=== PATIENT | male | born 1935 | race Caucasian/White ===

== ENCOUNTER 2024-10-22 01:26 | Inpatient (IN) | payer OTHER, SELFPAY ==
[2024-10-21 21:02] VITALS: BP 99/72
[2024-10-21 21:29] LABS: Hematocrit 25.1 % (39.0-52.0); Hemoglobin 8.3 g/dL (13.0-18.0); Mean Corp Hgb Conc. 33.1 g/dL (33.0-37.0); Mean Corpuscular Hgb 25.9 pg (27.0-31.0); Mean Corpuscular Volume 78.4 fL (80.0-94.0); Mean Platelet Volume 9.8 fL (7.4-10.4); Platelet Count 225 10^3/uL (130-400); Red Cell Dist. Width 15.8 % (11.5-14.5); White Blood Cell Count 40.1 10^3/uL (4.8-10.8)
[2024-10-21 22:00] LABS: % Basophils 0.2 % (0-2); % Immature Granulocytes 1.6 % (0-0.5); % Lymphocytes 3.6 % (20.5-51.1); % Monocytes 3.8 % (1.7-9.3); % Neutrophils 90.8 % (42.2-75.2); ALT (SGPT) 23 U/L (0-50); AST (SGOT) 13 U/L (17-59); Absolute Basophils 0.1 10^3/uL (0-0.2); Absolute Immature Granulocytes 0.7 10^3/uL (0-0.05); Absolute Lymphocytes 1.5 10^3/uL (1.2-3.4); Absolute Monocytes 1.5 10^3/uL (0.1-0.6); Absolute Neutrophils 36.4 10^3/uL (1.4-6.5); Albumin 3.5 g/dl (3.5-5.0); Alkaline Phosphatase 142 U/L (38-126); Blood Urea Nitrogen 161 mg/dl (9-20); Calcium 8.4 mg/dl (8.4-10.2); Carbon Dioxide 12 mmol/L (22-30); Chloride 97 mmol/L (98-107); Glucose 137 mg/dl (70-99); Nucleated Red Blood Cells % 0 % (-); Potassium 5.4 mmol/L (3.5-5.1); Sodium 133 mmol/L (135-145); Total Bilirubin 0.5 mg/dl (0.2-1.3); Total Protein 6.5 g/dl (6.3-8.2); eGFR 4.59
[2024-10-21 22:31] VITALS: BP 107/53
--- NOTE | 2024-10-21 22:40 | ED.GENMED ---
History of Present Illness
General
Chief Complaint: Change in Mental Status
Source: patient and family (Granddaughter)
Time Seen by Provider: 10/21/24 22:20
History of Present Illness
History of Present Illness:
89-year-old gentleman brought to the emergency room by his granddaughter for evaluation of confusion, incontinence which is new onset, weight loss and some shortness of breath. Patient lives independently. He does go to doctors appointments but
has not been hospitalized in approximately 40 years. He evidently recently had some GI bleeding thought to be related to the initiation of Xarelto. Unclear what the indication for Xarelto was but it has been discontinued. Patient has a solitary
kidney. Patient unsure which kidney was removed but it was removed approximately 50 years ago 'because it went bad'. Unclear if the patient has a history of prostatic hypertrophy. Patient is unable to quantify his urine output at this time.
Phy Exam
Physical Exam
Physical Exam:
General: Awake, Alert, Oriented X3. Chronic ill-appearing, cachectic
Vitals: Tachypneic
Head: Atraumatic
Eyes: Pupils equal, EOMI
Throat: Airway intact, no exudates, dry mucosa
Neck: Trachea midline
Lungs: Crackles bilaterally
Heart: Regular rate, no murmurs
Abd: Soft, Nontender, No pulsatile mass
Neuro: Nonfocal
Skin: Warm, dry, no rash
Extremities: pulses equal b/l, 2+ edema
Sepsis
Sepsis Screening
Sepsis Assessment: Sepsis
Sepsis Screen
Sepsis Screen: Sepsis
Date: 10/22/24
Time: 06:06
Course
Orders/Labs/Results
Orders:
Orders
10/21/24 21:15
Complete Blood Count/With Diff Urgent
Comprehensive Metabolic Panel Urgent
Magnesium Urgent
Comment: ADD ON
Phosphorus Urgent
Comment: ADD ON
Urine Culture Urgent
KENN Source: U
Specimen Description:
Date Specimen was Collected: 10/21/24
Time Specimen was Collected: 21:07
10/21/24 22:33
Electrocardiogram (*1) Urgent
Reason for Study: Fatigue / Weakness
EKG- Treatment ONCE
10/21/24 22:34
CT Abd/pel Without Iv Or Oral Urgent
Comment:
Reason For Exam: acute renal failure
10/21/24 22:38
Calcium Gluconate 1,000 mg IV NOW STA
Dextrose 50%-Water [Dextrose 50% Syringe] 12.5 grams IV [id number] PRN
Dextrose 50%-Water [Dextrose 50% Syringe] 25 grams IV NOW STA
Insulin Human Regular [Novolin R] 5 units IV NOW STA
CR Chest - 2 Views Urgent
Comment:
Reason For Exam: sob
10/21/24 22:40
Bedside Glucose PRE IV Insulin- HyperK+ NOW
10/21/24 22:45
Sterile Water For Inj [Sterile Water For Injection 1000 ml] 1,000 ml Sodium Bicarbonate 150 meq IV 200 mls/hr
10/21/24 22:47
Urinalysis Urgent
Date Specimen was Collected: 10/21/24
Time Specimen was Collected: 21:07
Urine Microscopic Urgent
Date Specimen was Collected: 10/21/24
Time Specimen was Collected: 21:07
10/21/24 23:19
CefTRIAXone [Rocephin] 1,000 mg IV NOW STA
10/21/24 23:20
Simmons [Simmons Placement- Treatment] ONCE
Reason for insertion: Acute Retention
10/21/24 23:29
Sterile Water [Sterile Water For Injection] 10 ml .ROUTE .STK-MED ONE
10/22/24 00:10
Bedside Glucose POST IV Insulin- HyperK+ Q1HX2,Q2HX2
10/22/24 01:02
Admit/Transfer Patient As Directed
Co-Sign Provider:
Level of Care: Inpatient admission
Assign to:: Telemetry
Physician / Group: hospitalist
Diagnosis: acute kidney failure
Reason for Telemetry: Arrhythmia
Date to Stop Telemetry: 10/25/24
Time to Stop Telemetry: 11:00
Reason for Hospitalization: acute kidney failure
Expected length of stay greater than two midnights?: Yes
ELOS- Estimated Length of Stay in days: 2
I certify the patient meets the requirements for IP care: Yes
10/22/24 01:03
PRN Pain Medication Management As Directed
May give lesser potent ordered pain med per pt: Yes
preference::
Protocol:: Medication orders for pain may be administered in a
manner that supports deferring to patient preference
when the pt is:
- Requesting an ordered lesser potent pain medication.
Least to most potent pain medications are defined
as: acetaminophen < NSAID < tramadol < opioids
(morphine, oxycodone, hydromorphone).
- Requesting a lesser dose of the same medication IF
ORDERED.
- Requesting a less intrusive route of administration
if both routes are prescribed by the provider (PO <
IV).
10/22/24 01:04
Code Status As Directed
Resuscitation Status: Full Code
10/22/24 01:25
Potassium Urgent
Comment: draw 2 hours after regular insulin IV administration
10/22/24 02:32
Acetaminophen [Tylenol] 650 mg PO Q4HPRN PRN
Bisacodyl [Dulcolax] 10 mg RECTAL [id number] PRN
Docusate W/Senna [Senokot-S] 1 tablet PO BIDPRN PRN
Ondansetron Injectable [Zofran] 4 mg IV Q6HPRN PRN
Polyethylene Glycol Powder [Miralax] 17 grams PO DAILYPRN PRN
10/22/24 02:32
NEPHROLOGY CONSULT Routine
Consulting Provider: Luis Angel Larkin
Was physician already notified: Yes
Reason for consult: lissy, bladder outlet obstruction
UROLOGY CONSULT Routine
Consulting Provider: Robert Tabor
Was physician already notified: Yes
Comment: bladder outlet obstruction, prostate mass, renal failure
Urine Creatinine Routine
Date Specimen was Collected: 10/22/24
Time Specimen was Collected: 04:05
Urine Protein/Creat Ratio (Random) [Protein/Creat Ratio (Random)] Routine
Date Specimen was Collected: 10/22/24
Time Specimen was Collected: 04:05
Urine Sodium Routine
Date Specimen was Collected: 10/22/24
Time Specimen was Collected: 04:05
MRI Abdomen [MR Abdomen Without Contrast] Routine
Comment:
Reason For Exam: liver mass evaluation
Recent pill cam endoscopy?: No
Activity As Directed
Activity Level: With Assistance
Simmons Catheter [Catheter- Indwelling] As Directed
Reason for insertion: Outlet Obstruction
Intake/ Output As Directed
Frequency: Per unit guidelines
Vital Signs As Directed
Frequency: Per unit guidelines
Weight As Directed
Frequency: Daily
Pulse Ox/spot Check [RESP] Routine
Quantity: 1
DX Deep Vein Thrombosis Video Routine
10/22/24 Breakfast
Potassium, 2 Gram
At Your Request: Limited Participation
AFP Male/Tumor Marker IN AM
Basic Metabolic Panel IN AM
CEA IN AM
Cardiovascular Evaluation IN AM
Complete Blood Count/No Diff IN AM
Magnesium IN AM
PSA, Total - Screen IN AM
PTH [Intact PTH Includes Calcium] IN AM
Protein Electrophoresis Reflex [S] IN AM
TSH IN AM
10/22/24 08:00
Heparin 5,000 units SC Q12
10/22/24 22:00
Aspirin Chewable [Low Strength Aspirin] 81 mg PO HS
Terazosin [Hytrin] 2 mg PO HS
10/23/24 00:00
CefTRIAXone [Rocephin] 1,000 mg IV Q24H
10/25/24 11:00
DC Protocol for Telemetry ONCE
Abnormal Lab Results
10/21/24 10/21/24 10/21/24
21:15 22:47 23:56
WBC 40.1 H* 10^3/uL
(4.8-10.8)
RBC 3.20 L 10^6/uL
(4.70-6.10)
Hgb 8.3 L g/dL
(13.0-18.0)
Hct 25.1 L %
(39.0-52.0)
MCV 78.4 L fL
(80.0-94.0)
MCH 25.9 L pg
(27.0-31.0)
RDW 15.8 H %
(11.5-14.5)
Abs Immat Gran (auto) 0.7 H 10^3/uL
(0-0.05)
Absolute Neuts (auto) 36.4 H 10^3/uL
(1.4-6.5)
Absolute Monos (auto) 1.5 H 10^3/uL
(0.1-0.6)
Immature Gran % 1.6 H %
(0-0.5)
Neutrophils % 90.8 H %
(42.2-75.2)
Lymphocytes % 3.6 L %
(20.5-51.1)
Sodium 133 L mmol/L
(135-145)
Potassium 5.4 H mmol/L
(3.5-5.1)
Chloride 97 L mmol/L
(98-107)
Carbon Dioxide 12 L* mmol/L
(22-30)
BUN 161 H* mg/dl
(9-20)
Creatinine 9.9 H* mg/dL
(0.7-1.3)
Glucose 137 H mg/dl
(70-99)
Phosphorus 7.9 H mg/dl
(2.5-4.5)
Magnesium 2.8 H mg/dl
(1.6-2.3)
AST 13 L U/L
(17-59)
Alkaline Phosphatase 142 H U/L
(38-126)
Urine Occult Blood 3+ A
(Negative)
Ur Leukocyte Esterase 2+ A
(Negative)
Urine WBC >100 A /HPF
(0-5)
Urine Albumin 1+ A
(Neg - Trace)
POC Glucose 151 H mg/dl
(70-99)
10/21/24 21:15
10/22/24 01:25
Vital Signs
Initial and Last Documented VS:
Initial Vital Signs
Pulse Resp BP Pulse Ox
66 26 99/72 100
10/21/24 21:02 10/21/24 21:02 10/21/24 21:02 10/21/24 21:02
Last Documented Vital Signs
Temp Pulse Resp BP Pulse Ox
97.5 F 81 16 127/51 98
10/22/24 02:59 10/22/24 02:59 10/22/24 02:59 10/22/24 02:59 10/22/24 02:59
MDM/Problems Addressed
Differential Diagnosis Includes:
Acute renal failure, electrolyte abnormality, symptomatic anemia, viral or bacterial infection
MDM/Problems Addressed:
Patient presents with confusion and weakness that has been progressing over the past several days. Patient lives independently so this is a significant change from baseline. Physical exam reveals fullness in the suprapubic region concerning for
distended bladder. Simmons catheter placed with the return of over a liter of urine. Urine appears infected. Labs show markedly elevated white blood cell count with a hemoglobin of 8.3 and a left shift. Chemistry show acute renal failure with a BUN
of 161 and a creatinine of 9.9. He has moderate hyperkalemia. Calcium gluconate, insulin and dextrose administered given the hyperkalemia as the patient does have peaked T waves on the EKG. Also he has noted to have a first-degree AV block.
Chemistries also show a anion gap metabolic acidosis. His bicarb is 12. Bicarbonate infusion initiated. Case discussed with Dr. Larkin who is on-call for nephrology. He agrees with the plan. Given we have alleviated the bladder outlet obstruction
he is optimistic the patient's function will improve.
*Radiology
Radiology exam reviewed: radiology read reviewed
*Pulse Oximetry
Patient hypoxic: no
*EKG
Interpreted by ED Provider?: Yes
Heart Rate: 74
Rate: normal
Rhythm: a-fib
[place]: normal axis
Interval: normal QT interval
QRS Pattern: normal QRS
Ischemia: other (peaked t waves)
*Nuclear Medicine Technologist Interpretation
Rate: normal
Interpretation: abnormal
Rhythm: a-fib
*Critical Care Note
Total Time (30-74mins, 75-104mins- exclusive of procedures): 40 min
comment:
Critical care statement: A total of 40 minutes of critical care time was provided for this patient. This includes management of unstable vital signs, evaluation of the patient at bedside, reviewing the patient's pertinent medical records, discussion
with consultants, review of old EKGs and review of pertinent medical records. This time with separate from time utilized to perform the aforementioned documented procedures
ED Attending Note
-
Portions of this chart may have been created with voice recognition software.� Occasional wrong word or��sound alike� substitutions may have occurred due to the inherent limitations of voice recognition software.
Discharge Plan
Departure
Patient Disposition: Admit
Date of Disposition: 10/21/24
Time of Disposition: 23:59
Admit to: IMU
Presentation/result/management discussed w/ accepting MD/DO: Hospitalist
Condition: Serious
Discharge Problem:
Acute renal failure (ARF), Acute hyperkalemia, Bladder outlet obstruction, Acute UTI
Interventions
Interventions:
*Risk Screen - Suicide Last Done: 10/21/24 21:02
*Neglect/Abuse Screening Last Done: 10/21/24 21:02
*ED COVID-19 Vaccine History Last Done: 10/22/24 02:33
*Nursing Disposition Last Done: 10/22/24 02:14
ED- Cardiac Assessment Last Done: 10/21/24 23:21
ED-Male Genitourinary Assessment Last Done: 10/21/24 23:21
ED- Neurological Assessment Last Done: 10/21/24 23:21
Discharge Date and Time
Discharge Date/Time: 10/22/24 02:15
[2024-10-21 22:43] VITALS: BMI 23.0
[2024-10-21 22:57] LABS: Urine Albumin 1+ (Neg - Trace); Urine Bilirubin Negative (Negative); Urine Character Slightly Cloudy (Clear); Urine Color Yellow; Urine Glucose Negative (Negative); Urine Ketone Negative (Negative); Urine Leukocyte 2+ (Negative); Urine Nitrite Negative (Negative); Urine Occult Blood 3+ (Negative); Urine Specific Gravity 1.015 (<1.030); Urine Urobilinogen Negative (Neg - 1+)
[2024-10-21 23:00] VITALS: BP 121/52
[2024-10-21] MEDS: DEXTROSE 50% SYRINGE 25 GRAMS IV (23:01)
[2024-10-21] MEDS: NOVOLIN R 5 UNITS IV (23:02)
[2024-10-21] MEDS: CALCIUM GLUCONATE 1000 MG IV (23:06)
[2024-10-21 23:13] LABS: Magnesium 2.8 mg/dl (1.6-2.3); Phosphorus 7.9 mg/dl (2.5-4.5)
[2024-10-21 23:16] LABS: Urine White Cell >100 /HPF (0-5)
[2024-10-21] MEDS: ROCEPHIN 1000 MG IV (23:44)
[2024-10-21] MEDS: SODIUM BICARBONATE 1150 MEQ IV (23:56)
[2024-10-21 23:57] LABS: Glucose - Point of Care 151 mg/dl (70-99)
[2024-10-22] VITALS (10 sets, daily range): BP systolic 102–134; BP diastolic 44–67; BMI 22.6
--- NOTE | 2024-10-22 00:46 | HPS.HSE ---
Family Physician
-
Family Physician: Lokesh Arrington
Chief Complaint
-
Weakness and lethargy
History of Present Illness
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
According to the granddaughter the patient declined significantly over the last 3 weeks. He has had decreased appetite, decreased p.o. intake and significant weight loss of about 20 to 30 pounds. Patient tells me and his granddaughter at home
because that is had nocturia about 8 times per night. He himself reports he has some difficulty with urination. He denies a weak stream. He denies dysuria hematuria. He does report some pelvic discomfort. He denies having fevers or chills. He
denies any back pain. He denies any lower extremity weakness. Apparently ED pain seen his principal software engineer who wanted to do a CT scan for concern of malignancy of unknown source or etiology.
Patient is unaware if he has been diagnosed with atrial fibrillation in the past but he was placed on Xarelto recently which was discontinued due to acute GI bleed. Patient was returned back on aspirin. Per patient did not alter was used to
replace the aspirin by his physician. He denies any history of congestive heart failure. He denies any chest pain. He denies shortness of breath other than some dyspnea on exertion and fatigue. He denies any vomiting. He denies have any
diarrhea. Has been no known sick contacts.
In the emergency department he was afebrile, blood pressure was 110/60 with a pulse of 77 was satting 99% on room air. ECG shows atrial fibrillation at a rate of 74. He had a leukocytosis to 14,000 with a white count of 8.39 plate count of 225.
Chemistries notable for a sodium of 133, potassium is pending, bicarb was 12, BUN was 161 and a creatinine of 9.9. Phosphorus was 7.9. Magnesium 2.8. Alk phos was elevated at 142. LFTs were normal.
Patient had a urinary catheter placed. He had about 1.5 L of urine immediately released from the bladder. Turbid urine still coming from catheter.
UA with pyuria, bacteriuria could not be assessed due to the degree of pyuria.
A noncontrast CT of the abdomen and pelvis shows was a single kidney, no significant hydronephrosis, bladder decompressed with Simmons catheter, there was. Prostatomegaly with 2 low-density areas in the right prostate. There was a low-density
ill-defined probable mass in the left hepatic lobe. Scattered lucencies throughout the skeleton indeterminate.
Medical History
Past Medical History
Past Medical History: Reports Arrhythmia, CAD and Other (BPH)
Past Surgical History: Reports Other
Social History
Tobacco: Non-smoker
Alcohol: None
Drug: None
Personal:
Living: Alone
Employment: Retired
Family History
Family History: Not pertinent
Allergies / Home Medications
Allergies reflects when Allergies were last updated in [facility].
Home Medications with original date entered in [facility]
Allergy/Medication List:
Allergies
Allergy/AdvReac Type Severity Reaction Status Date / Time
No Known Allergies Allergy Unverified 10/21/24 22:42
Home Medications
aspirin 81 mg chewable tablet 81 mg PO HS 10/21/24
atorvastatin 20 mg tablet 20 mg PO DAILY 10/21/24
ramipril 5 mg capsule 10 mg PO DAILY 10/21/24
terazosin 2 mg capsule 2 mg PO HS 10/21/24
therapeutic multivitamin 1 tab PO DAILY 10/21/24
Review of Systems
-
Constitutional: Reports Weight Loss and Fatigue
EENT: Reports Other (hoarseness)
Respiratory: Reports No Symptoms
Cardiac: Reports No Symptoms
Abdomen/GI: Reports Nausea
: Reports Difficulty Voiding
Musculoskeletal: Reports No Symptoms
Skin: Reports No Symptoms
Neurological: Reports Weakness
Endocrine: Reports No Symptoms
Hematologic/Lymphatic: Reports No Symptoms
Psych: Reports No Symptoms
Physical Exam
Vital Signs
Vital Signs
Pulse Resp BP Pulse Ox
63 14 110/62 99
10/22/24 00:30 10/22/24 00:30 10/22/24 00:00 10/22/24 00:30
Physical Exam
General: Appears Chronically Ill
HEENT: NormoCephalic, Anicteric, PERRLA, No Ptosis, Nose Appears Normal and Neck Nontender; No Moist mucous membranes, Thrush or Pharyngeal Erythema
Respiratory: Clear
Cardiac: S1/S2 and Irregular Rhythm
Breast: Deferred by me
GI: Soft, Non Tender, Non Distended and Normal Bowel Sounds
Rectal: Deferred by Provider
Genito-urinary: Turbid Urine and Simmons
Musculoskeletal: No Clubbing, No Cyanosis, Edema, Left Lower Extremity (trace ankle) and Edema, Right Lower Extremity (trace ankle)
Neuro: AO x 3 and Nonfocal/grossly intact
Hematologic/Lymphatic: No Lymphadenopathy
Psych: Calm
Laboratory Results
-
10/21/24 21:15
Laboratory Results
Total Bilirubin 0.5 mg/dl (0.2-1.3) 10/21/24 21:15
AST 13 U/L (17-59) L 10/21/24 21:15
ALT 23 U/L (0-50) 10/21/24 21:15
Alkaline Phosphatase 142 U/L (38-126) H 10/21/24 21:15
Data Reviewed
-
CT Scan: Report Reviewed by me
Medical Tests (Nuc Med, Echo, EKG etc): Image Personally Visualized and interpreted
Lab Data: Labs Reviewed by me
Old Records: Reviewed
Impression/Plan
-
IMPRESSION:
89 y.o male here with acute renal failure of likley obstructive etiology. K is 5.4. bicarb 12. BUN 161 and Cr 9.9. Patient not immediately polyuric after placement of catheter but making some urine. Does not appear oliguric. History suggest
some degree of dehydration.
PLAN:
BLANCA - Severe BLANCA plausible post-renal given h/o bph, nocturia and urinary retention to 1.5 L in ED. No hydronephrosis seen on CT. Possibly more recent obstruction on underlying CKD. Recent blood work in september was reported to be normal for him.
Possibly infection but no signs of sepsis.
- admit to telemetry
- s/p insulin dextrose with repeat K pending.
- 150 meq bicarb gtt at 150 ml/hr for now.
- elevated phos and mag suggests some chronicity but will repeat after hydration
- check pth
- strict i/o
- K restricted diet for now
- check urine protein/cr, urine fractional sodium excretion
- hold ramipril/statin
- nephrology consult
Urinary retention
- s/p urinary catheter
- continue catheter for now
- given heterogenous prostate check psa
- continue terrazosin for now
- continue ceftriaxone pending cultures
- urology consult
AFIB - unclear if new onset as patient has h/o anticoaglation and 'skipping heart beat'
- obtain records from pmd
- telemetry monitoring for now
- Xarelto resulted in GI bleed, hold for now
- continue aspirin 81
FTT - hepatic lobe and skeletal lesions concerning for malignancy. Primary unknown
- check psa, cea, afp
- liver mass protocl mri w/o contrast
- check spep
- monitor leukocytosis if persistently elevated, needs peripheral smear
- CT chest (hoarseness), xray was negative.
DVT PPX - heparin sq
Code status - Full code
[2024-10-22 01:18] LABS: Glucose - Point of Care 94 mg/dl (70-99)
--- NOTE | 2024-10-22 02:30 | PTCARENOTE ---
Patient arrived to unit from ED via stretcher. Patient pulled over to bed from stretcher. A&Ox3. Patient oriented to unit with call light within reach. Care ongoing.
[2024-10-22 02:58] LABS: Glucose - Point of Care 93 mg/dl (70-99)
[2024-10-22 04:59] LABS: Glucose - Point of Care 84 mg/dl (70-99)
[2024-10-22] MEDS: SODIUM BICARBONATE 1150 MEQ IV ×3 (06:15→18:20)
[2024-10-22 06:57] LABS: Hematocrit 21.8 % (39.0-52.0); Hemoglobin 7.3 g/dL (13.0-18.0); Mean Corp Hgb Conc. 33.5 g/dL (33.0-37.0); Mean Corpuscular Hgb 25.5 pg (27.0-31.0); Mean Corpuscular Volume 76.2 fL (80.0-94.0); Mean Platelet Volume 9.7 fL (7.4-10.4); Platelet Count 198 10^3/uL (130-400); Red Blood Cell Count 2.86 10^6/uL (4.70-6.10); Red Cell Dist. Width 15.6 % (11.5-14.5); White Blood Cell Count 28.2 10^3/uL (4.8-10.8)
[2024-10-22] MEDS: HEPARIN 5000 UNITS SC ×2 (07:33→19:52)
[2024-10-22 07:38] LABS: Calcium 7.9 mg/dl (8.4-10.2); Carbon Dioxide 17 mmol/L (22-30); Chloride 95 mmol/L (98-107); Estimated Creatinine Clearance 5 ml/min; Glucose 84 mg/dl (70-99); HDL Cholesterol 23 mg/dl; LDL Cholesterol, Calculated 31 mg/dl; Magnesium 2.6 mg/dl (1.6-2.3); Potassium 4.6 mmol/L (3.5-5.1); Sodium 133 mmol/L (135-145); Total Cholesterol 85 mg/dl (50-199); Triglyceride 155 mg/dl (10-149); Very Low Density Lipoprotein 31 mg/dl (0-30); eGFR 4.83
[2024-10-22 07:43] LABS: Blood Urea Nitrogen 161 mg/dl (9-20)
[2024-10-22 07:54] LABS: CEA 4.58 ng/ml; TSH 1.69 uIU/ml (0.47-4.68)
[2024-10-22 08:01] LABS: Urine Sodium 49 mmol/L (30-90)
[2024-10-22 08:10] LABS: Protein/creatinine Ratio 3.4; Urine Protein 335 mg/dl
--- NOTE | 2024-10-22 08:24 | W.CON.NEPH ---
Addendum entered and electronically signed by Luis Angel Larkin MD 10/22/24 15:39:
Spoke with granddaughter Yaz on phone. baseline Cr Aug 2023 1.5.
She can have the dialysis discussion with him if the Cr fails to improve significantly.
Awaiting workup of elevated PSA/prostate abnormalities
Weight loss and failure to thrive could have also at least in part be potentiated by severe azotemia.
Original Note:
Medical History
-
Chief Complaint: Pain
History of Present Illness:
89-year-old gentleman who lives alone but is checked on by his family including a daughter and several grandchildren. He has hypertension on a multidrug regimen which presumably has been stable as well as hyperlipidemia on statin therapy also
stable. He does have a history of left nephrectomy at the age of 37 though he does not recall the details as to why it was removed. In the last 3 to 4 weeks time he has declined. There appears to be a time when he had seen cardiology who became
concerned regarding his significant weight loss of 20 to 30 pounds in that timeframe. He was brought to the ER by his granddaughter who is an ER nurse because he had apparently reported pain and issues with urination. He does not recall this at
this time. In the emergency room he was noted to have a creatinine of 9.9. A Simmons catheter was placed with 1.5 L of urine output. He also has significant acidosis. We are asked to assist with management of the BLANCA. No baseline values are known.
Past Medical History
Left nephrectomy age 37
A-fib
BPH
CAD
Hyperlipidemia
Social History
Tobacco: Non-Smoker
Alcohol: None
Family History
Family History: Not Pertinent
Allergies / Home Medications
Allergy/AdvReac Type Severity Reaction Status Date / Time
No Known Allergies Allergy Unverified 10/21/24 22:42
�Medication �Instructions �Recorded �Confirmed �Type
aspirin 81 mg chewable tablet 81 mg PO HS 10/21/24 10/21/24 History
atorvastatin 20 mg tablet 20 mg PO DAILY 10/21/24 10/21/24 History
ramipril 5 mg capsule 10 mg PO DAILY 10/21/24 10/21/24 History
terazosin 2 mg capsule 2 mg PO HS 10/21/24 10/21/24 History
therapeutic multivitamin 1 tab PO DAILY 10/21/24 10/21/24 History
Review of Systems
-
No chest pain, no shortness of breath. No fever. No issues with bowels. No edema. No rash. He reports normal appetite. He does not recall poor appetite recently.
Physical Exam
Vital Signs
Vital Signs
Temp Pulse Resp BP Pulse Ox
97.8 F 76 16 124/59 99
10/22/24 07:34 10/22/24 07:34 10/22/24 07:34 10/22/24 07:34 10/22/24 07:34
Lab Results
WBC 28.2 10^3/uL (4.8-10.8) H 10/22/24 06:34
RBC 2.86 10^6/uL (4.70-6.10) L 10/22/24 06:34
Hgb 7.3 g/dL (13.0-18.0) L 10/22/24 06:34
Hct 21.8 % (39.0-52.0) L 10/22/24 06:34
Plt Count 198 10^3/uL (130-400) 10/22/24 06:34
Sodium 133 mmol/L (135-145) L 10/22/24 06:34
Potassium 4.6 mmol/L (3.5-5.1) 10/22/24 06:34
Chloride 95 mmol/L (98-107) L 10/22/24 06:34
Carbon Dioxide 17 mmol/L (22-30) L 10/22/24 06:34
BUN 161 mg/dl (9-20) H* 10/22/24 06:34
Creatinine 9.5 mg/dL (0.7-1.3) H* 10/22/24 06:34
eGFR 4.83 10/22/24 06:34
Glucose 84 mg/dl (70-99) 10/22/24 06:34
Calcium 7.9 mg/dl (8.4-10.2) L 10/22/24 06:34
Phosphorus 7.9 mg/dl (2.5-4.5) H 10/21/24 21:15
Albumin 3.5 g/dl (3.5-5.0) 10/21/24 21:15
Laboratory Tests
10/21/24
21:15
WBC 40.1 H*
Potassium 5.4 H
Creatinine 9.9 H*
Phosphorus 7.[address] abdomen pelvis without contrast on 10/21/2024
IMPRESSION:.
Approximate 3.2 cm and 3.7 cm low-attenuation densities in the right side of the enlarged prostate gland. Findings could represent abscess, mass or cyst, cannot be differentiated on this study without intravenous contrast.
Left kidney not visualized. No findings to suggest right-sided obstructive uropathy. Empty urinary bladder containing Simmons catheter.
Colonic diverticulosis.
Few scattered indeterminate osseous lucencies, cannot exclude malignancy.
Physical Exam
Patient is awake alert oriented and in no distress. He was able to identify the year but not the month. He knew that there was a recent presidential and alteration. When asked about football, he says that he recalls a recent game between [place]
[facility] and [place] that was canceled because of snow. Mood and affect were pleasant, insight and judgment were poor. Pupils are equal round and reactive to light, extraocular movements are intact, sclera were anicteric. Hearing was normal, ears and
nose are intact. Oropharynx was clear and dry. Neck was supple with trachea midline and no thyromegaly. Heart was regular rate and rhythm without rubs. Lower extremities without edema. Lungs were clear to auscultation bilaterally and with normal
excursion. Abdomen was soft, nontender, with normal active bowel sounds, and no hepatosplenomegaly. Skin was without rash and with normal turgor.
Data Reviewed
-
Radiology: Image Personally Visualized and interpreted (Chest x-ray on 10/21/2024 by reading shows no acute disease)
Medical Tests (Nuc Med, Echo etc): Image Personally Visualized and interpreted (EKG on 10/21/2024 by my reading shows atrial fibrillation, nonspecific interventricular conduction delay)
Assessment/Plan
-
Assessment
BLANCA
Urinary retention
Azotemia
Metabolic acidosis
Hyperkalemia
hyponatremia
Hypocalcemia
Hyperphosphatemia
Nephrotic range proteinuria
Anemia, microcytic
Leukocytosis
Elevated PSA, prostate abnormality on CT
A-fib
Plan
Maintain Simmons catheter
Off MARIA A inhibitor
Empiric antibiotics per primary team
Urology evaluation
Check iron studies
IV fluids with bicarbonate we will continue
Treat potassium medically
Follow urine output
I discussed with the patient that he may require dialysis though I am not certain he is an ideal long-term candidate
Most likely BLANCA is from urinary retention, but concurrent causes may also need to be checked, so we will add on serology
[2024-10-22 09:31] LABS: Creatine Phosphokinase 48 U/L (55-170)
[2024-10-22 11:20] LABS: Intact PTH 153.3 pg/ml (13.6-85.8)
--- NOTE | 2024-10-22 11:46 | W.PN.HOSP.TC ---
Today's Communication/Plan
-
.
Assessment / Plan
Assessment / Plan
Physical Exam
General: Appears Chronically Ill
HEENT: Normocephalic, Anicteric, PERRLA, No Ptosis, Nose Appears Normal and Neck Nontender; No Moist mucous membranes, Thrush or Pharyngeal Erythema
Respiratory: Clear
Cardiac: S1/S2 and Irregular Rhythm
Breast: Deferred by me
GI: Soft, Non Tender, Non Distended and Normal Bowel Sounds
Rectal: No bleeding
Genito-urinary: Turbid Urine and Simmons
Musculoskeletal: No Clubbing, No Cyanosis, Edema, Left Lower Extremity (trace ankle) and Edema, Right Lower Extremity (trace ankle)
Neuro: AO to self and surroundings, he followed simple commands, forgetful.
Psych: Calm
89 y.o male here with acute renal failure of likley obstructive etiology. K is 5.4. bicarb 12. BUN 161 and Cr 9.9. Patient not immediately polyuric after placement of catheter but making some urine. Does not appear oliguric. History suggest
some degree of dehydration.
PLAN:
BLANCA - Severe BLANCA plausible post-renal given h/o bph, nocturia and urinary retention to 1.5 L in ED. No hydronephrosis seen on CT. Possibly more recent obstruction on underlying CKD.
Pt is forgetful, unable to recall his baseline kidney function or reason why he had nephrectomy. c/w IVF
c/w Simmons
Mild decrease in creatinine but might need HD
Stop MARIA A
Avoid hypotension
Appreciate nephrology & urology help
# Hyperkalemia, resolving
# Urinary retention/ possible UTI
- s/p urinary catheter
- continue catheter for now
- continue terazosin for now
- continue ceftriaxone pending cultures
- urology consult
AFIB - unclear if new onset as patient has h/o anticoagulation and 'skipping heart beat'
- telemetry monitoring for now
- Xarelto resulted in GI bleed, hold for now
- continue aspirin 81
- Not on Rate control medications.
FTT - hepatic lobe and skeletal lesions concerning for malignancy. Primary unknown
- check psa, cea, afp
- liver mass protocl mri w/o contrast
- check spep
- monitor leukocytosis if persistently elevated, needs peripheral smear
- CT chest (hoarseness), xray was negative.
# Leukocytosis, WBC is coming down
No fevers
DVT PPX - heparin sq
Code status - Full code
Total time spent to see the patient, examine the patient, review data and lab results, discuss treatment plan with patient and nursing staff around 55 minutes
Anticipated Discharge: > 48 hours
Subjective/Interval History
-
Date of Service: October 22, 2024
No chest pain or sob
Seems comfortable in bed
Objective Data
-
Labs:
Laboratory Results
10/22/24 10/22/24
01:25 06:34
WBC 28.2 H
Hgb 7.3 L
Hct 21.8 L
Plt Count 198
Sodium 133 L
Potassium 5.0 4.6
Chloride 95 L
Carbon Dioxide 17 L
BUN 161 H*
Creatinine 9.5 H*
Glucose 84
Calcium 7.9 L
Vital Signs:
Vital Signs
Temp Pulse Resp BP Pulse Ox
97.8 F 76 16 124/59 99
10/22/24 07:34 10/22/24 07:34 10/22/24 07:34 10/22/24 07:34 10/22/24 07:34
I&O
10/21/24 10/22/24 10/23/24
06:59 06:59 06:59
Intake Total 480 / 480
Output Total 1900 / 1900
Balance -1420 / -1420
--- NOTE | 2024-10-22 12:49 | W.PN.URO.CBU ---
Today's Communication / Plan
-
teach leg bag care and collins to pt and family he willgo home with collins
Assessment / Plan
-
uti retention solitaruy kidney await cxs keep collins
Diagnosis
-
Date of Service: October 22, 2024
-
Patient Diagnosis:
urinary retention 1.5 liters draionedn with soliary kidney and h/o bph
Post Op Day:
Subjective
-
poor voiding
Objective
-
Vital Signs
Temp Pulse Resp BP Pulse Ox
97.8 F 76 16 124/59 99
10/22/24 07:34 10/22/24 07:34 10/22/24 07:34 10/22/24 07:34 10/22/24 07:34
Intake and Output
10/21/24 10/22/24 10/23/24
06:59 06:59 06:59
Intake Total 480 / 480
Output Total 1900 / 1900
Balance -1420 / -1420
Intake:
Oral fluids 480 / 480
Output:
Urine, Collins 1900 / 1900
Laboratory Results
10/22/24 06:34
10/22/24 06:34
Review of Systems
-
: Difficulty Voiding
Physical Exam
-
General - well developed, well nourished, no acute distress
Chest - clear bilaterally
Abdomen - soft, non-tender, positive bowel sounds, no CVAT, no incisional pain or distention
Genitalia - normal
Rectal - normal
Skin - warm & dry with no rash
Neuro - AOx3, no motor deficits
Extremities - no clubbing, no cyanosis, no edema
Incision - clean, dry
Dressing - clean, dry, intact
Care Review
Data Reviewed
Discussed with: Nursing
CT Scan: Image Pers Reviewed
[2024-10-22 14:27] LABS: Anti Streptolysin Negative (Negative)
[2024-10-22] MEDS: TYLENOL 650 MG PO (19:55)
[2024-10-22] MEDS: HYTRIN 2 MG PO (22:23)
[2024-10-22] MEDS: LOW STRENGTH ASPIRIN 81 MG PO (22:23)
[2024-10-22] MEDS: STERILE WATER FOR INJECTION 10 ML IV (23:09)
[2024-10-22] MEDS: ROCEPHIN 1000 MG IV (23:09)
[2024-10-22] MEDS: SODIUM BICARBONATE IV (23:10)
[2024-10-23] VITALS (9 sets, daily range): BP systolic 107–135; BP diastolic 44–72; BMI 23.4
[2024-10-23 00:04] LABS: Calcium 7.3 mg/dl (8.4-10.2); Carbon Dioxide 31 mmol/L (22-30); Chloride 88 mmol/L (98-107); Estimated Creatinine Clearance 7 ml/min; Glucose 188 mg/dl (70-99); Sodium 132 mmol/L (135-145); eGFR 7.21
[2024-10-23 00:10] LABS: Blood Urea Nitrogen 157 mg/dl (9-20)
[2024-10-23] MEDS: NSS 1000 IV ×4 (00:29→21:02)
--- NOTE | 2024-10-23 02:18 | DOWNTIME ---
There was a [employer] Winter Downtime on 10/23/2024 from 0100 to 10/23/2023 at 0205 . Downtime documentation of patient's care, including medication administrations, has been reconciled in the electronic record per guidelines. Refer to the
patient's paper chart under the miscellaneous tab to see printed paper medication records and downtime forms.
[2024-10-23 07:23] LABS: Calcium 7.2 mg/dl (8.4-10.2); Carbon Dioxide 31 mmol/L (22-30); Chloride 90 mmol/L (98-107); Estimated Creatinine Clearance 7 ml/min; Glucose 143 mg/dl (70-99); Potassium 3.8 mmol/L (3.5-5.1); Sodium 134 mmol/L (135-145)
[2024-10-23 07:36] LABS: Blood Urea Nitrogen 152 mg/dl (9-20)
[2024-10-23 08:04] LABS: Hematocrit 20.6 % (39.0-52.0); Hemoglobin 7.2 g/dL (13.0-18.0); Mean Corpuscular Hgb 25.8 pg (27.0-31.0); Mean Corpuscular Volume 73.8 fL (80.0-94.0); Mean Platelet Volume 9.8 fL (7.4-10.4); Platelet Count 196 10^3/uL (130-400); Red Blood Cell Count 2.79 10^6/uL (4.70-6.10); Red Cell Dist. Width 15.1 % (11.5-14.5); White Blood Cell Count 27.1 10^3/uL (4.8-10.8)
--- NOTE | 2024-10-23 08:06 | PTCARENOTE ---
Lab informed this RN of critical hct value, result= 20.6. made aware, new order provided, see TAR.
--- NOTE | 2024-10-23 08:49 | W.PN.HOSP.TC ---
Today's Communication/Plan
-
Blood transfusion
Check iron level
c/w Rocephin
Reduce IVF rate
Assessment / Plan
Assessment / Plan
Physical Exam
General: Appears Chronically Ill
HEENT: Normocephalic, Anicteric, PERRLA, No Ptosis, Nose Appears Normal and Neck Nontender; No Moist mucous membranes, Thrush or Pharyngeal Erythema
Respiratory: Clear
Cardiac: S1/S2 and Irregular Rhythm
Breast: Deferred by me
GI: Soft, Non Tender, Non Distended and Normal Bowel Sounds
Rectal: No bleeding
Genito-urinary: Turbid Urine and Simmons
Musculoskeletal: No Clubbing, No Cyanosis, Edema, Left Lower Extremity (trace ankle) and Edema, Right Lower Extremity (trace ankle)
Neuro: AO to self and surroundings, he followed simple commands, forgetful.
Psych: Calm
89 y.o male here with acute renal failure of likley obstructive etiology. K is 5.4. bicarb 12. BUN 161 and Cr 9.9. Patient not immediately polyuric after placement of catheter but making some urine. Does not appear oliguric. History suggest
some degree of dehydration.
PLAN:
BLANCA - Severe BLANCA plausible post-renal given h/o bph, nocturia and urinary retention to 1.5 L in ED. No hydronephrosis seen on CT.
Creatinine 1.5 with GFR 45 in 09/2024
s/p left nephrectomy.
c/w IVF
c/w Simmons
Stopped MARIA A
Avoid hypotension
Appreciate nephrology & urology help
# Hyperkalemia, resolving
# Urinary retention/ E Coli UTI
- s/p urinary catheter
- continue catheter for now
- continue terazosin for now
- continue ceftriaxone.
- urology consulted
Permanent AFIB per records. -
Some tachycardia noted,
No chest pains
Started on low dose BB
- telemetry monitoring for now
- Xarelto resulted in GI bleed.
- continue aspirin 81
# Acute on chronic anemia of chronic disease
Baseline HGB around 8-9
low iron level
Normal ferritin
Consent signed, given one unit of RBCs.
# hepatic lobe lesions
Possible prostate cancer.
- Elevated PSA
Mild elevation CEA
AFP is pending.
-MRI done but limited.
# Leukocytosis, WBC is coming down
No fevers
DVT PPX - heparin sq
Code status - Full code
Total time spent to see the patient, examine the patient, review data and lab results, discuss treatment plan with patient, family and nursing staff around 57 minutes
Anticipated Discharge: > 48 hours
Subjective/Interval History
-
Date of Service: October 23, 2024
No complaints
Objective Data
-
Labs:
Laboratory Results
10/22/24 10/23/24
23:32 06:42
WBC 27.1 H
Hgb 7.2 L
Hct 20.6 L*
Plt Count 196
Sodium 132 L 134 L
Potassium 4.0 3.8
Chloride 88 L 90 L
Carbon Dioxide 31 H 31 H
BUN 157 H* 152 H*
Creatinine 6.8 H* 6.3 H*
Glucose 188 H 143 H
Calcium 7.3 L 7.2 L
Vital Signs:
Vital Signs
Temp Pulse Resp BP Pulse Ox
97.9 F 76 16 118/64 97
10/23/24 07:30 10/23/24 07:30 10/23/24 07:30 10/23/24 07:30 10/23/24 07:30
I&O
10/22/24 10/23/24 10/24/24
06:59 06:59 06:59
Intake Total 480 / 480 2200 / 2200
Output Total 1900 / 1900 1999 / 1999
Balance -1420 / -1420 200 / 200
[2024-10-23] MEDS: TOPROL XL 12.5 MG PO (08:53)
[2024-10-23] MEDS: HEPARIN 5000 UNITS SC ×2 (08:54→19:35)
--- NOTE | 2024-10-23 09:23 | W.PN.URO.CBU ---
Today's Communication / Plan
-
keep collins teach pt and family collins care
Assessment / Plan
-
uti retention solitary kidney await cxs keep collins pt improving but wbc stalled Concerned over possible prostate abscess Jorge not suspicious but ct scan raiSES ISSUES .wILL FOLLOW but if doesnt dheeraj wbc will consider mri
prostae or u/s
Diagnosis
-
Date of Service: October 23, 2024
-
Patient Diagnosis:
Post Op Day:
Patient Diagnosis:
urinary retention 1.5 liters drained with solitary kidney and h/o bph possible prostate abscess but clinically improving
Post Op Day:
Subjective
-
more energy no hematuria
Objective
-
Vital Signs
Temp Pulse Resp BP Pulse Ox
97.9 F 76 16 118/64 97
10/23/24 07:30 10/23/24 08:53 10/23/24 07:30 10/23/24 08:53 10/23/24 07:30
Intake and Output
10/22/24 10/23/24 10/24/24
06:59 06:59 06:59
Intake Total 480 / 480 2200 / 2200
Output Total 1900 / 1900 2000 / 2000
Balance -1420 / -1420 200 / 200
Intake:
Oral fluids 480 / 480 600 / 600
IV fluids (Total) 1600 / 1600
Output:
Urine, Collins 1900 / 1900 1300 / 1300
Urine, Voided 700 / 700
Laboratory Results
10/23/24 06:42
10/23/24 06:42
Review of Systems
-
: Difficulty Voiding
Physical Exam
-
General - well developed, well nourished, no acute distress
Chest - clear bilaterally
Abdomen - soft, non-tender, positive bowel sounds, no CVAT, no incisional pain or distention
Genitalia - normal
Rectal - normal
Skin - warm & dry with no rash
Neuro - AOx3, no motor deficits
Extremities - no clubbing, no cyanosis, no edema
Incision - clean, dry
Dressing - clean, dry, intact
Care Review
Data Reviewed
Discussed with: Nursing and Family (fasmily at bedside)
CT Scan: Image Pers Reviewed
[2024-10-23 09:37] LABS: Iron < 20 ug/dl (49-181)
[2024-10-23 10:01] LABS: Ferritin 49.7 ng/ml (17.9-464.0)
--- NOTE | 2024-10-23 10:15 | PTCARENOTE ---
1 unit PRBC started as ordered. Pt laying in bed comfortably. No signs or symptoms of reaction.
--- NOTE | 2024-10-23 12:17 | W.PN.NEPH.PH ---
Today's Communication / Plan
-
IV fluid
Simmons cath
No acute need for dialysis from a volume, electrolyte, or uremic standpoint
Assessment/Plan
-
Assessment
BLANCA
Urinary retention
Azotemia
Metabolic acidosis
Hyperkalemia
hyponatremia
Hypocalcemia
Hyperphosphatemia
Nephrotic range proteinuria
Anemia, microcytic
Leukocytosis
Elevated PSA, prostate abnormality on CT
A-fib
Plan
Maintain Simmons catheter
Off MARIA A inhibitor
Empiric antibiotics per primary team
Urology evaluation
Check iron studies
Follow urine output
I discussed with the patient that he may require dialysis though I am not certain he is an ideal long-term candidate
He is nonoliguric with some improvement in his azotemia.
I discussed with his granddaughter who is a nurse as well as his grandson who is at the bedside that there is no urgent need for dialysis from a volume of electrolyte or uremic standpoint.
Continue to monitor the trend of his azotemia and will reevaluate in the next 24 hours. He is getting a unit of packed red blood cells
Continue IV fluid
-
-
Date of Service: October 23, 2024
CC / HPI / ROS
-
Patient has no chest pain shortness of breath nausea or vomiting he is awake
Simmons catheter nonoliguric
Labs
-
Labs:
WBC 27.1 10^3/uL (4.8-10.8) H 10/23/24 06:42
RBC 2.79 10^6/uL (4.70-6.10) L 10/23/24 06:42
Hgb 7.2 g/dL (13.0-18.0) L 10/23/24 06:42
Hct 20.6 % (39.0-52.0) L* 10/23/24 06:42
Plt Count 196 10^3/uL (130-400) 10/23/24 06:42
Sodium 134 mmol/L (135-145) L 10/23/24 06:42
Potassium 3.8 mmol/L (3.5-5.1) 10/23/24 06:42
Chloride 90 mmol/L (98-107) L 10/23/24 06:42
Carbon Dioxide 31 mmol/L (22-30) H 10/23/24 06:42
BUN 152 mg/dl (9-20) H* 10/23/24 06:42
Creatinine 6.3 mg/dL (0.7-1.3) H* 10/23/24 06:42
eGFR 7.90 10/23/24 06:42
Glucose 143 mg/dl (70-99) H 10/23/24 06:42
Calcium 7.2 mg/dl (8.4-10.2) L 10/23/24 06:42
Phosphorus 7.9 mg/dl (2.5-4.5) H 10/21/24 21:15
Albumin 3.5 g/dl (3.5-5.0) 10/21/24 21:15
Physical Exam
-
Vital Signs:
Vital Signs
Temp Pulse Resp BP Pulse Ox
98.3 F 89 17 123/44 97
10/23/24 11:24 10/23/24 11:24 10/23/24 11:24 10/23/24 11:24 10/23/24 11:24
Respiratory:: Bilateral: CTA
Lung Excursion:: Normal
Abdomen:: Soft
Bowel Sounds:: Normal
Extremity Edema:: None: Bilateral:
Simmons Catheter: Yes
[2024-10-23] MEDS: NSS IV (13:07)
--- NOTE | 2024-10-23 13:42 | PN.CDI ---
Addendum entered and electronically signed by Jamal Barnett MD 10/23/24 14:11:
Anemia of chronic disease/ CKD
as in PN
Original Note:
CDI
- -
CDI:
Physician Documentation Request
Admit Date: 10/22/24 01:26
Dear Doctor Anibal,
Please review the following and provide your response in the progress notes.
Clinical Indicators:
Nephrology, consult, 10/22
#Anemia, microcytic
Laboratory Tests
10/21/24 10/22/24 10/23/24
21:15 06:34 06:42
Hgb 8.3 L 7.3 L 7.2 L
Hct 25.1 L 21.8 L 20.6 L*
10/23/2024
#transfused...1 unit leukocyte-reduced RBC
Based on the above and your clinical assessment, please clarify the most likely type of anemia evaluated, monitored and/or treated?
Acute blood loss anemia
Acute blood loss anemia with baseline chronic anemia (Specify type)
Anemia of chronic disease - indicate if neoplastic disease, CKD or other
Other(please specify)
Use of terms such as suspected, likely, concern for, or probable (associated with a specific diagnosis that is being evaluated, monitored, or treated as if it exists) are acceptable and can be coded in the inpatient setting, when documented at the
time of discharge.
Thank you,
Janiya Staley RN BSN CCDS
CDI Specialist
please contact via tiger text
Please use your independent medical judgment in providing your response.
--- NOTE | 2024-10-23 14:34 | CM ---
Addendum entered by Casandra Lynn 10/24/24 14:42:
Patient accepted by [facility] fax# [phone]
Addendum entered by Casandra Lynn 10/23/24 14:45:
[facility] does not service, josette, options reviewed, referral placed for [facility].
Original Note:
Patient seen bedside.
IA completed.
patient lives alone in 2 story home, with 2 steps to enter.
Patient drives, patient independent without assistive devices.
Patient denies home care at the present but neighbor is a nurse and and 2 granddaughters and grandson are nurses.
Patient agreeable to home with VN, chose [facility].
IMM completed.
PCP: Dr Arrington
Pharmacy: [facility] [phone]
Plan: home with VN, referral to [facility], [facility]
[2024-10-23] MEDS: LOW STRENGTH ASPIRIN 81 MG PO (21:02)
[2024-10-23] MEDS: HYTRIN 2 MG PO (21:02)
[2024-10-23 21:27] LABS: Myeloperoxidase Antibody 0 AU/mL (0-19); Serine Protease-3, IgG 0 AU/mL (0-19)
[2024-10-23 21:46] LABS: ANA, IgG Reflex to HEp-2 Detected (None Detected)
[2024-10-24] VITALS (8 sets, daily range): BP systolic 127–163; BP diastolic 58–74; PULSE 67; O2SAT 96; BMI 24.0
[2024-10-24] MEDS: ROCEPHIN 1000 MG IV ×2 (00:09→23:45)
[2024-10-24] MEDS: STERILE WATER FOR INJECTION 10 ML IV ×2 (00:09→23:45)
[2024-10-24 03:33] LABS: Complement C3 100 mg/dl (88-165)
[2024-10-24] MEDS: NSS 1000 IV ×3 (05:02→23:45)
[2024-10-24 07:46] LABS: Blood Urea Nitrogen 119 mg/dl (9-20); Carbon Dioxide 30 mmol/L (22-30); Chloride 101 mmol/L (98-107); Estimated Creatinine Clearance 11 ml/min; Glucose 150 mg/dl (70-99); Potassium 3.9 mmol/L (3.5-5.1); Sodium 140 mmol/L (135-145); eGFR 13.23
--- NOTE | 2024-10-24 08:06 | W.PN.HOSP.TC ---
Today's Communication/Plan
-
Follow with nephrology recommendations
Urology: keep Simmons
Consult PT/OT
IV Iron.
Assessment / Plan
Assessment / Plan
Physical Exam
General: Appears Chronically Ill
HEENT: Normocephalic, Anicteric, PERRLA, No Ptosis, Nose Appears Normal and Neck Nontender; No Moist mucous membranes, Thrush or Pharyngeal Erythema
Respiratory: Clear
Cardiac: S1/S2 and Irregular Rhythm
Breast: Deferred by me
GI: Soft, Non Tender, Non Distended and Normal Bowel Sounds
Rectal: No bleeding
Genito-urinary: Turbid Urine and Simmons
Musculoskeletal: No Clubbing, No Cyanosis, Edema, Left Lower Extremity (trace ankle) and Edema, Right Lower Extremity (trace ankle)
Neuro: AO to self and surroundings, he followed simple commands, forgetful.
Psych: Calm
89 y.o male here with acute renal failure of likley obstructive etiology. K is 5.4. bicarb 12. BUN 161 and Cr 9.9. Patient not immediately polyuric after placement of catheter but making some urine. Does not appear oliguric. History suggest
some degree of dehydration.
PLAN:
BLANCA - Severe BLANCA plausible post-renal given h/o bph, nocturia and urinary retention to 1.5 L in ED. No hydronephrosis seen on CT.
Creatinine 1.5 with GFR 45 in 09/2024
s/p left nephrectomy.
c/w IVF
c/w Simmons
Stopped MARIA A
Avoid hypotension
Appreciate nephrology & urology help
# Hyperkalemia, resolving
# Urinary retention/ E Coli UTI ( pugh sensitive)
- s/p urinary catheter
- continue catheter for now
- continue terazosin for now
- continue ceftriaxone.
- urology consulted
# Permanent AFIB per records. -
Some tachycardia noted, but also bradycardia noted
Will check his heart rate during physical therapy, if uncontrolled A fib, will keep same dose of BB, if remains low heart rate, will discontinue. d/w nursing staff.
No chest pains
Started on low dose BB
- telemetry monitoring for now
- Xarelto resulted in GI bleed.
- continue aspirin 81
# Acute on chronic anemia of chronic disease/ Iron deficiency anemia
Baseline HGB around 8-9
No bleeding, no need for daily CBC
low iron level
Normal ferritin
Consent signed, given one unit of RBCs 10/23.
Start IV Iron for 2-3 doses, oral iron.
# hepatic lobe lesions
Possible prostate cancer. Will need OP follow up with urologist.
- Elevated PSA
Mild elevation CEA
AFP is pending.
-MRI done but limited.
# Leukocytosis, WBC is coming down
No fevers
DVT PPX - heparin sq
Code status - Full code
Total time spent to see the patient, examine the patient, review data and lab results, discuss treatment plan with patient, family and nursing staff around 57 minutes
Anticipated Discharge: > 48 hours
Subjective/Interval History
-
Date of Service: October 24, 2024
Denies pain or sob
Objective Data
-
Labs:
Laboratory Results
10/24/24 10/24/24
06:43 07:31
WBC Pending
Hgb Pending
Hct Pending
Plt Count Pending
Sodium 140
Potassium 3.9
Chloride 101
Carbon Dioxide 30
BUN 119 H*
Creatinine 4.1 H*
Glucose 150 H
Calcium 7.0 L
Vital Signs:
Vital Signs
Temp Pulse Resp BP Pulse Ox
97.5 F 74 16 127/58 97
10/24/24 07:58 10/24/24 07:58 10/24/24 07:58 10/24/24 07:58 10/24/24 07:58
I&O
10/23/24 10/24/24 10/25/24
06:59 06:59 06:59
Intake Total 2199 / 2199
Output Total 1999 2350 / 2349
Balance 200 / 200 -280 / -280
[2024-10-24 08:11] LABS: Hematocrit 23.8 % (39.0-52.0); Hemoglobin 7.8 g/dL (13.0-18.0); Mean Corp Hgb Conc. 32.8 g/dL (33.0-37.0); Mean Corpuscular Hgb 25.8 pg (27.0-31.0); Mean Corpuscular Volume 78.8 fL (80.0-94.0); Mean Platelet Volume 10.1 fL (7.4-10.4); Platelet Count 189 10^3/uL (130-400); Red Blood Cell Count 3.02 10^6/uL (4.70-6.10); Red Cell Dist. Width 15.7 % (11.5-14.5); White Blood Cell Count 15.1 10^3/uL (4.8-10.8)
[2024-10-24] MEDS: TOPROL XL 12.5 MG PO (08:21)
[2024-10-24] MEDS: FEOSOL 325 MG PO (08:22)
[2024-10-24] MEDS: HEPARIN 5000 UNITS SC ×2 (08:22→20:00)
--- NOTE | 2024-10-24 09:54 | PTCARENOTE ---
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 Pt asleep. MD made aware. No new orders provided.
--- NOTE | 2024-10-24 10:05 | W.PN.URO.CBU ---
Today's Communication / Plan
-
no gu changes
Assessment / Plan
-
uti retention solitary kidney e coli uti but responding to iv abs wbc and creatinine trnding down keep collins
Diagnosis
-
Date of Service: October 24, 2024
-
Patient Diagnosis:
Post Op Day:
Patient Diagnosis:
Post Op Day:
Patient Diagnosis:
urinary retention 1.5 liters drained with solitary kidney and h/o bph possible prostate abscess but clinically improving e coli and so far no clinical evidence abscess just radiographic possibility
Post Op Day:
Subjective
-
sleepy
Objective
-
Vital Signs
Temp Pulse Resp BP Pulse Ox
97.5 F 74 16 127/58 97
10/24/24 07:58 10/24/24 08:21 10/24/24 07:58 10/24/24 08:21 10/24/24 07:58
Intake and Output
10/23/24 10/24/24 10/25/24
06:59 06:59 06:59
Intake Total 2200 / 2200 207 / 2070
Output Total 1999 / 1999 2350 / 2350
Balance 200 / 200 -280 / -280
Intake:
Oral fluids 600 / 600 1020 / 1020
IV fluids (Total) 1600 / 1600 800 / 800
Blood Product Amount Infused ( 250 / 250
mL)
Packed Rbc Leukoreduced Unit 250 / 250
[id number]
Output:
Urine, Collins 1300 / 1300 1050 / 1050
Urine, Voided 700 / 700 1300 / 1300
Laboratory Results
10/24/24 07:31
10/24/24 06:43
Review of Systems
-
: Difficulty Voiding
Physical Exam
-
General - well developed, well nourished, no acute distress
Chest - clear bilaterally
Abdomen - soft, non-tender, positive bowel sounds, no CVAT, no incisional pain or distention
Genitalia - normal
Rectal - normal
Skin - warm & dry with no rash
Neuro - AOx3, no motor deficits
Extremities - no clubbing, no cyanosis, no edema
Incision - clean, dry
Dressing - clean, dry, intact
[2024-10-24] MEDS: SENOKOT-S 1 TABLET PO (12:42)
[2024-10-24] MEDS: FERRLECIT 110 MG IV (13:09)
--- NOTE | 2024-10-24 14:31 | W.PN.NEPH.PH ---
Today's Communication / Plan
-
continue IV fluids maintain Simmons catheter
Assessment/Plan
-
Assessment
BLANCA
Urinary retention
Azotemia
Metabolic acidosis
Hyperkalemia
hyponatremia
Hypocalcemia
Hyperphosphatemia
Nephrotic range proteinuria
Anemia, microcytic
Leukocytosis
Elevated PSA, prostate abnormality on CT
A-fib
Plan
Maintain Simmons catheter
Off MARIA A inhibitor
Urology evaluation Noted/ possible prostate abscess
I discussed with his granddaughter who is a nurse as well as his grandson who is at the bedside that there is no urgent need for dialysis from a volume of electrolyte or uremic standpoint.
Continue to monitor the trend of his azotemia Which continues to improve.
Urine cultures E. coli= Rocephin
Continue IV fluid.
Creatinine continues to improve down from 9.9 to 4.1/non-oligarch
-
-
Date of Service: October 24, 2024
CC / HPI / ROS
-
Patient has no chest pain shortness of breath nausea or vomiting he is awake
Simmons catheter nonoliguric
patient much more awake than admission. No overnight events
Labs
-
Labs:
WBC 15.1 10^3/uL (4.8-10.8) H 10/24/24 07:31
RBC 3.02 10^6/uL (4.70-6.10) L 10/24/24 07:31
Hgb 7.8 g/dL (13.0-18.0) L 10/24/24 07:31
Hct 23.8 % (39.0-52.0) L 10/24/24 07:31
Plt Count 189 10^3/uL (130-400) 10/24/24 07:31
Sodium 140 mmol/L (135-145) 10/24/24 06:43
Potassium 3.9 mmol/L (3.5-5.1) 10/24/24 06:43
Chloride 101 mmol/L (98-107) 10/24/24 06:43
Carbon Dioxide 30 mmol/L (22-30) 10/24/24 06:43
BUN 119 mg/dl (9-20) H* 10/24/24 06:43
Creatinine 4.1 mg/dL (0.7-1.3) H* 10/24/24 06:43
eGFR 13.23 10/24/24 06:43
Glucose 150 mg/dl (70-99) H 10/24/24 06:43
Calcium 7.0 mg/dl (8.4-10.2) L 10/24/24 06:43
Phosphorus 7.9 mg/dl (2.5-4.5) H 10/21/24 21:15
Albumin 3.5 g/dl (3.5-5.0) 10/21/24 21:15
Physical Exam
-
Vital Signs:
Vital Signs
Temp Pulse Resp BP Pulse Ox
97.7 F 67 16 149/58 96
10/24/24 11:16 10/24/24 11:16 10/24/24 11:16 10/24/24 11:16 10/24/24 11:16
Respiratory:: Bilateral: CTA
Lung Excursion:: Normal
Abdomen:: Soft
Bowel Sounds:: Normal
Extremity Edema:: None: Bilateral:
Simmons Catheter: Yes
[2024-10-24] MEDS: HYTRIN 2 MG PO (22:03)
[2024-10-24] MEDS: LOW STRENGTH ASPIRIN 81 MG PO (22:03)
[2024-10-24 23:46] LABS: Albumin 2.33 g/dL (3.75-5.01); Alpha 1 Globulin 0.52 g/dL (0.19-0.46); Alpha 2 Globulin 0.78 g/dL (0.48-1.05); SPEP IFE Reflex IFE Done; Total Protein-Electrophoresis 5.4 g/dL (6.3-8.2)
[2024-10-25] VITALS (10 sets, daily range): BP systolic 152–187; BP diastolic 60–76; BMI 24.0
[2024-10-25] MEDS: FEOSOL 325 MG PO (07:59)
[2024-10-25] MEDS: HEPARIN 5000 UNITS SC ×2 (07:59→20:57)
[2024-10-25 08:00] LABS: Blood Urea Nitrogen 88 mg/dl (9-20); Calcium 7.4 mg/dl (8.4-10.2); Carbon Dioxide 28 mmol/L (22-30); Chloride 106 mmol/L (98-107); Estimated Creatinine Clearance 18 ml/min; Glucose 124 mg/dl (70-99); Potassium 3.9 mmol/L (3.5-5.1); Sodium 143 mmol/L (135-145); eGFR 22.86
[2024-10-25 08:03] LABS: IgA 534 mg/dL (68-408); IgG 748 mg/dL (768-1632); IgM 152 mg/dL (35-263)
--- NOTE | 2024-10-25 09:48 | W.PN.HOSP.TC ---
Today's Communication/Plan
-
Chest x ray
Hold IVF
start amlodipine,
follow with nephrology recommendations, might need diuretics
CBC & BMP 10/26
Assessment / Plan
Assessment / Plan
Physical Exam
General: Appears Chronically Ill
HEENT: Normocephalic.
Respiratory: mild rales heard
Cardiac: S1/S2 and Irregular Rhythm
GI: Soft, Non Tender, Non Distended and Normal Bowel Sounds
Rectal: No bleeding
Genito-urinary: clear Urine and Simmons
Musculoskeletal: No Clubbing, No Cyanosis, Edema, Left Lower Extremity (trace ankle) and Edema, Right Lower Extremity (trace ankle)
Neuro: AO to self and surroundings, he followed simple commands, forgetful.
Psych: Calm
89 y.o male here with acute renal failure of likley obstructive etiology. K is 5.4. bicarb 12. BUN 161 and Cr 9.9. Patient not immediately polyuric after placement of catheter but making some urine. Does not appear oliguric. History suggest
some degree of dehydration.
PLAN:
BLANCA - Severe BLANCA plausible post-renal given h/o bph, nocturia and urinary retention to 1.5 L in ED. No hydronephrosis seen on CT.
Creatinine 1.5 with GFR 45 in 09/2024
Creatinine now down to 2.6
s/p left nephrectomy.
Stop IVF today due to increasing weight, pulmonary rales, developing dependent edema buttocks.
c/w Simmons
Stopped MARIA A
Avoid hypotension
Appreciate nephrology & urology help
#acute pulmonary non cardiogenic edema
Stop IVF
Might need diuretic, nephrology to assess for that
# Hyperkalemia, resolving
# Urinary retention/ E Coli UTI ( pugh sensitive)
- s/p urinary catheter
- continue catheter for now
- continue terazosin for now
- continue ceftriaxone.
- urology consulted
# Secondary HTN
due to CKD
stat low dose amlodipine
# Permanent AFIB
HR around 60s upon PT
No chest pains
Started on low dose BB but noted to have low HR although he had no symptoms.
- telemetry monitoring for now
- Xarelto resulted in GI bleed.
- continue aspirin 81
# Acute on chronic anemia of chronic disease/ Iron deficiency anemia
Baseline HGB around 8-9
No bleeding, no need for daily CBC
low iron level
Normal ferritin
Consent signed, given one unit of RBCs 10/23.
Start IV Iron for 2-3 doses, oral iron.
# hepatic lobe lesions
Possible prostate cancer. Will need OP follow up with urologist.
- Elevated PSA
Mild elevation CEA
AFP is pending.
-MRI done but limited.
# Leukocytosis, WBC is coming down
No fevers
DVT PPX - heparin sq
Code status - Full code
Total time spent to see the patient, examine the patient, review data and lab results, discuss treatment plan with patient, pecan grower, and nursing staff around 59 minutes
Anticipated Discharge: > 48 hours
Subjective/Interval History
-
Date of Service: October 25, 2024
denies chest pain or abd pain
Noted some cough during exam
Objective Data
-
Labs:
Laboratory Results
10/25/24
06:45
Sodium 143
Potassium 3.9
Chloride 106
Carbon Dioxide 28
BUN 88 H
Creatinine 2.6 H
Glucose 124 H
Calcium 7.4 L
Vital Signs:
Vital Signs
Temp Pulse Resp BP Pulse Ox
98.2 F 79 20 156/64 96
10/25/24 07:46 10/25/24 07:46 10/25/24 07:46 10/25/24 07:58 10/25/24 07:46
I&O
10/24/24 10/25/24 10/26/24
06:59 06:59 06:59
Intake Total 2069
Output Total 2349 / 2549
Balance -280 / -280 -475 / -475
--- NOTE | 2024-10-25 10:25 | PTCARENOTE ---
Blood pressure elevated, made aware, new order provided, see MAR.
[2024-10-25] MEDS: NORVASC 2.5 MG PO ×2 (10:31→21:00)
--- NOTE | 2024-10-25 10:49 | W.PN.NEPH.PH ---
Today's Communication / Plan
-
follow BMP
Assessment/Plan
-
Assessment
BLANCA
Urinary retention
Azotemia
Metabolic acidosis
Hyperkalemia
hyponatremia
Hypocalcemia
Hyperphosphatemia
Nephrotic range proteinuria
Anemia, microcytic
Leukocytosis
Elevated PSA, prostate abnormality on CT
A-fib
Plan
Maintain Simmons catheter
Off MARIA A inhibitor
follow BMP
no IVF
urology f/u for prostate
-
-
Date of Service: October 25, 2024
CC / HPI / ROS
-
Chief Complaint:
BLANCA
History of Present Illness:
BLANCA/Cr down to 2.[address] for retention
BP stable
Review of Systems:
no CP/SOB
Labs
-
Labs:
WBC 15.1 10^3/uL (4.8-10.8) H 10/24/24 07:31
RBC 3.02 10^6/uL (4.70-6.10) L 10/24/24 07:31
Hgb 7.8 g/dL (13.0-18.0) L 10/24/24 07:31
Hct 23.8 % (39.0-52.0) L 10/24/24 07:31
Plt Count 189 10^3/uL (130-400) 10/24/24 07:31
Sodium 143 mmol/L (135-145) 10/25/24 06:45
Potassium 3.9 mmol/L (3.5-5.1) 10/25/24 06:45
Chloride 106 mmol/L (98-107) 10/25/24 06:45
Carbon Dioxide 28 mmol/L (22-30) 10/25/24 06:45
BUN 88 mg/dl (9-20) H 10/25/24 06:45
Creatinine 2.6 mg/dL (0.7-1.3) H 10/25/24 06:45
eGFR 22.86 10/25/24 06:45
Glucose 124 mg/dl (70-99) H 10/25/24 06:45
Calcium 7.4 mg/dl (8.4-10.2) L 10/25/24 06:45
Phosphorus 7.9 mg/dl (2.5-4.5) H 10/21/24 21:15
Albumin 3.5 g/dl (3.5-5.0) 10/21/24 21:15
Physical Exam
-
Vital Signs:
Vital Signs
Temp Pulse Resp BP Pulse Ox
98.2 F 82 20 167/69 96
10/25/24 07:46 10/25/24 10:31 10/25/24 07:46 10/25/24 10:31 10/25/24 07:46
Cardiovascular:: Regular rate and rhythm
Respiratory:: Bilateral: Coarse
Lung Excursion:: Normal
Abdomen:: Nontender and Soft
Bowel Sounds:: Normal
Extremity Edema:: None: Bilateral:
[2024-10-25] MEDS: MIRALAX 17 GRAMS PO (10:52)
--- NOTE | 2024-10-25 11:25 | CM ---
Addendum entered by ROSALINDA Hong 10/25/24 16:48:
Spoke with patient's granddaughter, Yaz who stated that the family feels that patient should go to a SNF. She selected: [facility], [facility], [facility], [facility], and [facility]. Will make referrals.
Addendum entered by ROSALINDA Hong 10/25/24 14:17:
Received call from Pao in admissions at [facility] who stated that she received referral for patient and can accept him. Will confirm that is alright with patient's daughter.
Addendum entered by ROSALINDA Hong 10/25/24 12:08:
Spoke with patient and grandson who was at patient's bedside. Family's preference is for patient to return home with VN as patient's granddaughter is an RN and will stay with patient as will other family so that he is not left alone. Patient's
grandson stated that patient's granddaughter would like for VN through patient's granddaughter's agency however he is unsure of who she works for. He stated that she will be in to visit this afternoon. Will discuss options with her. Will continue to
make recommendations based off of therapy's evals.
Original Note:
Per attending patient weaning off of fluids. Still requiring medical care. Patient initially expressed wanting to return home with VN services, however as he lives alone and is not close to his baseline, Will need to discuss SNF with patient.
Plan: Case management will continue to follow and assist with discharge planning. Home with VN vrs. SNF. Will meet with patient to discuss.
[2024-10-25] MEDS: NSS IV (13:10)
[2024-10-25] MEDS: FERRLECIT 110 MG IV (13:24)
--- NOTE | 2024-10-25 13:33 | PTCARENOTE ---
Pt OOB to chair. This RN observed small blood clots and minimal amount of sediment in Simmons drainage tubing. Urology made aware.
--- NOTE | 2024-10-25 13:44 | W.PN.URO.CBU ---
Today's Communication / Plan
-
urologically stable plan per hosputaist teach pt and family collins leg bag care
Assessment / Plan
-
uti retention solitary kidney e coli uti but responding to iv abs wbc and creatinine trnding down keep collins
Diagnosis
-
Date of Service: October 25, 2024
-
Patient Diagnosis:
Post Op Day:
Patient Diagnosis:
Post Op Day:
Patient Diagnosis:
Post Op Day:
Patient Diagnosis:
urinary retention 1.5 liters drained with solitary kidney and h/o bph possible prostate abscess but clinically improving e coli and so far no clinical evidence abscess just radiographic possibility
Post Op Day:
Subjective
-
feeling better
Objective
-
Vital Signs
Temp Pulse Resp BP Pulse Ox
98.8 F 93 18 152/60 92
10/25/24 11:31 10/25/24 11:31 10/25/24 11:31 10/25/24 12:56 10/25/24 11:31
Intake and Output
10/24/24 10/25/24 10/26/24
06:59 06:59 06:59
Intake Total 2069 / 2069
Output Total 2350 / 2350 2550 / 2550
Balance -280 / -280 -475 / -475
Intake:
Oral fluids 1020 / 1020 600 / 600
IV fluids (Total) 800 / 800 1375 / 1375
IV piggybacks 100 / 100
Blood Product Amount Infused ( 250 / 250
mL)
Packed Rbc Leukoreduced Unit 250 / 250
[id number]
Output:
Urine, Collins 1050 / 1050 1250 / 1250
Urine, Voided 1300 / 1300 1300 / 1300
Laboratory Results
10/24/24 07:31
10/25/24 06:45
Review of Systems
-
: Difficulty Voiding
Physical Exam
-
General - well developed, well nourished, no acute distress
Chest - clear bilaterally
Abdomen - soft, non-tender, positive bowel sounds, no CVAT, no incisional pain or distention
Genitalia - normal
Rectal - normal
Skin - warm & dry with no rash
Neuro - AOx3, no motor deficits
Extremities - no clubbing, no cyanosis, no edema
Incision - clean, dry
Dressing - clean, dry, intact
Care Review
Data Reviewed
Discussed with: Nursing
--- NOTE | 2024-10-25 13:51 | PTCARENOTE ---
BP elevated, made aware, new order provided.
[2024-10-25] MEDS: APRESOLINE 5 MG PO (15:26)
[2024-10-25 17:41] LABS: ANA, HEp-2, IgG <1:80 (<1:80)
[2024-10-25] MEDS: HYTRIN 2 MG PO (20:59)
[2024-10-25] MEDS: LOW STRENGTH ASPIRIN 81 MG PO (21:01)
[2024-10-25] MEDS: SENOKOT-S 1 TABLET PO (21:01)
[2024-10-25] MEDS: STERILE WATER FOR INJECTION 10 ML IV (23:34)
[2024-10-25] MEDS: ROCEPHIN 1000 MG IV (23:34)
[2024-10-26] VITALS (8 sets, daily range): BP systolic 152–176; BP diastolic 67–98; PULSE 101–140; O2SAT 94–97; BMI 23.7
[2024-10-26] MEDS: APRESOLINE 5 MG PO ×2 (08:00→16:33)
[2024-10-26] MEDS: NORVASC 2.5 MG PO ×2 (08:00→20:50)
[2024-10-26] MEDS: FEOSOL 325 MG PO (08:00)
[2024-10-26] MEDS: HEPARIN 5000 UNITS SC ×2 (08:00→20:47)
[2024-10-26 09:19] LABS: Hematocrit 25.6 % (39.0-52.0); Hemoglobin 8.1 g/dL (13.0-18.0); Mean Corp Hgb Conc. 31.6 g/dL (33.0-37.0); Mean Corpuscular Volume 82.1 fL (80.0-94.0); Mean Platelet Volume 9.7 fL (7.4-10.4); Platelet Count 210 10^3/uL (130-400); Red Blood Cell Count 3.12 10^6/uL (4.70-6.10); Red Cell Dist. Width 15.9 % (11.5-14.5); White Blood Cell Count 12.8 10^3/uL (4.8-10.8)
[2024-10-26 09:30] LABS: Blood Urea Nitrogen 61 mg/dl (9-20); Calcium 8.1 mg/dl (8.4-10.2); Carbon Dioxide 28 mmol/L (22-30); Chloride 107 mmol/L (98-107); Estimated Creatinine Clearance 23 ml/min; Glucose 110 mg/dl (70-99); Potassium 4.2 mmol/L (3.5-5.1); Sodium 143 mmol/L (135-145); eGFR 31.31
--- NOTE | 2024-10-26 09:43 | W.PN.HOSP.TC ---
Today's Communication/Plan
-
Discharge planning
Ready to go to SNF
Will be on short course of oral antibiotic upon discharge
Assessment / Plan
Assessment / Plan
Physical Exam
General: Appears Chronically Ill
HEENT: Normocephalic.
Respiratory: No rales today
Cardiac: S1/S2 and Irregular Rhythm
GI: Soft, Non Tender, Non Distended and Normal Bowel Sounds
Rectal: No bleeding
Genito-urinary: clear Urine and Simmons
Musculoskeletal: No Clubbing, No Cyanosis, Edema, Left Lower Extremity (trace ankle) and Edema, Right Lower Extremity (trace ankle)
Neuro: AO to self and surroundings, he followed simple commands, forgetful.
Psych: Calm
89 y.o male here with acute renal failure of likley obstructive etiology. K is 5.4. bicarb 12. BUN 161 and Cr 9.9. Patient not immediately polyuric after placement of catheter but making some urine. Does not appear oliguric. History suggest
some degree of dehydration.
PLAN:
BLANCA - Severe BLANCA plausible post-renal given h/o bph, nocturia and urinary retention to 1.5 L in ED. No hydronephrosis seen on CT.
Creatinine 1.5 with GFR 45 in 09/2024
Creatinine now down to 2.0
Good oral intake
s/p left nephrectomy.
Stopped IVF today due to increasing weight, pulmonary rales, developing dependent edema buttocks. Weight is stable now.
c/w Simmons
Stopped MARIA A
Avoid hypotension
Appreciate nephrology & urology help
#acute pulmonary non cardiogenic edema
Stopped IVF
Lung exam is better today, I did not hear rales.
Might need diuretic, nephrology to assess for that
# Hyperkalemia, resolving
# Urinary retention/ E Coli UTI ( pugh sensitive)
- s/p urinary catheter
- continue catheter for now
- continue terazosin for now
- continue ceftriaxone.
- urology consulted
# Secondary HTN
due to CKD
stat low dose amlodipine
# Permanent AFIB
HR around 60s upon PT
No chest pains
Started on low dose BB but noted to have low HR although he had no symptoms.
- telemetry monitoring for now
- Xarelto resulted in GI bleed.
- continue aspirin 81
# Acute on chronic anemia of chronic disease/ Iron deficiency anemia
Baseline HGB around 8-9
No bleeding, no need for daily CBC
low iron level
Normal ferritin
Consent signed, given one unit of RBCs 10/23.
s/p IV Iron for 2 doses, oral iron.
# hepatic lobe lesions
Possible prostate cancer. Will need OP follow up with urologist.
- Elevated PSA
Mild elevation CEA
AFP is pending.
-MRI done but limited.
# Leukocytosis, WBC is coming down
No fevers
DVT PPX - heparin sq
Code status - Full code
Total time spent to see the patient, examine the patient, review data and lab results, discuss treatment plan with patient, utility aide, and nursing staff around 55 minutes
Anticipated Discharge: Within 24 hours
Subjective/Interval History
-
Date of Service: October 26, 2024
He denies abdominal pain or sob
no cough
Objective Data
-
Labs:
Laboratory Results
10/26/24
08:14
WBC 12.8 H
Hgb 8.1 L
Hct 25.6 L
Plt Count 210
Sodium 143
Potassium 4.2
Chloride 107
Carbon Dioxide 28
BUN 61 H
Creatinine 2.0 H
Glucose 110 H
Calcium 8.1 L
Vital Signs:
Vital Signs
Temp Pulse Resp BP Pulse Ox
98.6 F 82 16 164/74 94
10/26/24 07:00 10/26/24 07:00 10/26/24 07:00 10/26/24 07:00 10/26/24 07:00
I&O
10/25/24 10/26/24 10/27/24
06:59 06:59 06:59
Intake Total 2074 200 / 200
Output Total 2550 / 2550 3200 / 3200
Balance -475 / -475 -3000 / -3000
--- NOTE | 2024-10-26 11:12 | W.PN.NEPH.PH ---
Today's Communication / Plan
-
Follow BMP
Assessment/Plan
-
Assessment
BLANCA
Urinary retention
Azotemia
Metabolic acidosis
Hyperkalemia
hyponatremia
Hypocalcemia
Hyperphosphatemia
Nephrotic range proteinuria
Anemia, microcytic
Leukocytosis
Elevated PSA, prostate abnormality on CT
A-fib
Plan
Maintain Simmons catheter
Off MARIA A inhibitor
Calcium channel linsey started yesterday for hypertension, follow BP
follow BMP
no IVF
urology f/u for prostate
-
-
Date of Service: October 26, 2024
CC / HPI / ROS
-
Chief Complaint:
BLANCA
History of Present Illness:
BLANCA/Cr down to 2.0
[address] for retention
BP stable
Review of Systems:
no CP/SOB
Labs
-
Labs:
WBC 12.8 10^3/uL (4.8-10.8) H 10/26/24 08:14
RBC 3.12 10^6/uL (4.70-6.10) L 10/26/24 08:14
Hgb 8.1 g/dL (13.0-18.0) L 10/26/24 08:14
Hct 25.6 % (39.0-52.0) L 10/26/24 08:14
Plt Count 210 10^3/uL (130-400) 10/26/24 08:14
Sodium 143 mmol/L (135-145) 10/26/24 08:14
Potassium 4.2 mmol/L (3.5-5.1) 10/26/24 08:14
Chloride 107 mmol/L (98-107) 10/26/24 08:14
Carbon Dioxide 28 mmol/L (22-30) 10/26/24 08:14
BUN 61 mg/dl (9-20) H 10/26/24 08:14
Creatinine 2.0 mg/dL (0.7-1.3) H 10/26/24 08:14
eGFR 31.31 10/26/24 08:14
Glucose 110 mg/dl (70-99) H 10/26/24 08:14
Calcium 8.1 mg/dl (8.4-10.2) L 10/26/24 08:14
Phosphorus 7.9 mg/dl (2.5-4.5) H 10/21/24 21:15
Albumin 3.5 g/dl (3.5-5.0) 10/21/24 21:15
Physical Exam
-
Vital Signs:
Vital Signs
Temp Pulse Resp BP Pulse Ox
98.7 F 105 16 152/68 95
10/26/24 10:49 10/26/24 10:49 10/26/24 10:49 10/26/24 10:49 10/26/24 10:49
Cardiovascular:: Regular rate and rhythm
Respiratory:: Bilateral: Coarse
Lung Excursion:: Normal
Abdomen:: Nontender and Soft
Bowel Sounds:: Normal
Extremity Edema:: None: Bilateral:
--- NOTE | 2024-10-26 15:41 | W.PN.URO.CBU ---
Today's Communication / Plan
-
Continue antibiotics
TRend renal function
Discharge with collins in place
Assessment / Plan
-
89M with solitary kidney, presenting with acute renal failure from likely acute on chronic urinary retention
Leukocytosis with E coli UTI
Prostate cystic lesions vs abscess on CT also with liver lesions
Urinary retention, renal failure
- 1.5L drained with collins placement. Maintain collins at discharge for further retention workup
- Creatinine down to 2.0 - trend renal function, recs per nephrology
UTI/prostate abscesses
- E coli UTI - recommend total 14 day antibiotic course for complicated UTI with possible prostate abscess
- Leukocytosis near resolved
- Per prior discussion between Dr. Streeter, patient, and family, decision was made to avoid intervention like abscess unroofing given patient's clinical improvement
- If infection worsens or recurs post treatment, would recommend reimaging and further eval for these prostate lesions
- Will need PSA and prostate exam in follow up to rule out prostate cancer
- Further outpatient imaging recommended for indeterminate liver lesions
Diagnosis
-
Date of Service: October 26, 2024
-
Patient Diagnosis:
urinary retention
Acute renal failure
solitary kidney
BPH
possible prostate abscess radiographically
Liver lesions
Post Op Day:
Subjective
-
Tolerating collins well
No complaints today
Objective
-
Vital Signs
Temp Pulse Resp BP Pulse Ox
98.7 F 105 16 152/68 95
10/26/24 10:49 10/26/24 10:49 10/26/24 10:49 10/26/24 10:49 10/26/24 10:49
Intake and Output
10/25/24 10/26/24 10/27/24
06:59 06:59 06:59
Intake Total 2074 200 / 200
Output Total 2550 / 2550 3200 / 3200
Balance -475 / -475 -3000 / -3000
Intake:
Oral fluids 600 / 600
IV fluids (Total) 1375 / 1375 100 / 100
IV piggybacks 100 / 100 100 / 100
Output:
Urine, Collins 1250 / 1250 3200 / 3200
Urine, Voided 1300 / 1300
Laboratory Results
10/26/24 08:14
10/26/24 08:14
Physical Exam
-
General - well developed, well nourished, no acute distress
Abdomen - soft, non-tender
Collins in place, clear yellow
[2024-10-26] MEDS: LOW STRENGTH ASPIRIN 81 MG PO (21:01)
[2024-10-26] MEDS: HYTRIN 2 MG PO (21:01)
[2024-10-26 23:20] LABS: AFP Male/Tumor Marker 1 ng/mL (0-9)
[2024-10-26] MEDS: ROCEPHIN 1000 MG IV (23:44)
[2024-10-26] MEDS: STERILE WATER FOR INJECTION 10 ML IV (23:45)
[2024-10-27 06:00] VITALS: BMI 22.6
[2024-10-27 06:02] LABS: Hematocrit 23.5 % (39.0-52.0); Hemoglobin 7.4 g/dL (13.0-18.0); Mean Corp Hgb Conc. 31.5 g/dL (33.0-37.0); Mean Corpuscular Hgb 25.9 pg (27.0-31.0); Mean Corpuscular Volume 82.2 fL (80.0-94.0); Mean Platelet Volume 9.4 fL (7.4-10.4); Platelet Count 197 10^3/uL (130-400); Red Blood Cell Count 2.86 10^6/uL (4.70-6.10); Red Cell Dist. Width 16.3 % (11.5-14.5); White Blood Cell Count 13.5 10^3/uL (4.8-10.8)
[2024-10-27 06:33] LABS: Blood Urea Nitrogen 46 mg/dl (9-20); Calcium 7.9 mg/dl (8.4-10.2); Carbon Dioxide 28 mmol/L (22-30); Chloride 110 mmol/L (98-107); Estimated Creatinine Clearance 28 ml/min; Glucose 120 mg/dl (70-99); Potassium 4.1 mmol/L (3.5-5.1); Sodium 146 mmol/L (135-145); eGFR 38.06
[2024-10-27 07:00] VITALS: BP 157/81
[2024-10-27] MEDS: FEOSOL 325 MG PO (07:25)
[2024-10-27] MEDS: NORVASC 2.5 MG PO ×2 (07:25→21:13)
[2024-10-27] MEDS: HEPARIN 5000 UNITS SC ×2 (07:25→21:13)
--- NOTE | 2024-10-27 09:42 | W.PN.HOSP.TC ---
Today's Communication/Plan
-
Discharge planning, will need rehab for short term
Give IV Rocephin & IV iron while in hospital
Assessment / Plan
Assessment / Plan
Physical Exam
General: Appears Chronically Ill
HEENT: Normocephalic.
Respiratory: No rales today
Cardiac: S1/S2 and Irregular Rhythm
GI: Soft, Non Tender, Non Distended and Normal Bowel Sounds
Rectal: No bleeding
Genito-urinary: clear Urine and Simmons
Musculoskeletal: No Clubbing, No Cyanosis, Edema, Left Lower Extremity (trace ankle) and Edema, Right Lower Extremity (trace ankle)
Neuro: AO to self and surroundings, he followed simple commands, forgetful.
Psych: Calm
89 y.o male here with acute renal failure of likley obstructive etiology. K is 5.4. bicarb 12. BUN 161 and Cr 9.9. Patient not immediately polyuric after placement of catheter but making some urine. Does not appear oliguric. History suggest
some degree of dehydration.
PLAN:
BLANCA - Severe BLANCA plausible post-renal given h/o bph, nocturia and urinary retention to 1.5 L in ED. No hydronephrosis seen on CT.
Creatinine 1.5 with GFR 45 in 09/2024
Creatinine now down to 2.0
Good oral intake
s/p left nephrectomy.
No need for more IVF, monitor weight, pulmonary status. Weight is stable now.
c/w Simmons
Stopped MARIA A
Avoid hypotension
Appreciate nephrology & urology help
#acute pulmonary non cardiogenic edema
Stopped IVF
Lung exam is better today, I did not hear rales.
Might need diuretic, nephrology to assess for that
# Hyperkalemia, resolving
# Urinary retention/ E Coli UTI ( pugh sensitive)
- s/p urinary catheter
- continue catheter for now
- continue terazosin for now
- continue ceftriaxone while in hospital, can discharged on oral Cefdinir for total 14 days ( d/w urology).
- urology consulted
# Secondary HTN
due to CKD
started low dose amlodipine
# Permanent AFIB
HR around 60s upon PT
No chest pains
Started on low dose BB but noted to have low HR although he had no symptoms.
- telemetry monitoring for now
- Xarelto resulted in GI bleed.
- continue aspirin 81
# Acute on chronic anemia of chronic disease/ Iron deficiency anemia
Baseline HGB around 8-9
No bleeding, no need for daily CBC
low iron level
Normal ferritin
Consent signed, given one unit of RBCs 10/23.
s/p IV Iron for 2 doses, will give another two doses while in hospital, oral iron.
# hepatic lobe lesions
Possible prostate cancer. Will need OP follow up with urologist.
- Elevated PSA
Mild elevation CEA
AFP is normal
Urine electrophoresis is resulted, d/w nephrology, unlikely Multiple myeloma.
-MRI done but limited.
# Leukocytosis, WBC is coming down
No fevers
DVT PPX - heparin sq
Code status - Full code
Total time spent to see the patient, examine the patient, review data and lab results, discuss treatment plan with patient, tin can feeder, and nursing staff around 55 minutes
Anticipated Discharge: Within 24 hours
Subjective/Interval History
-
Date of Service: October 27, 2024
No complaints
No chest pain
Objective Data
-
Labs:
Laboratory Results
10/27/24
05:42
WBC 13.5 H
Hgb 7.4 L
Hct 23.5 L
Plt Count 197
Sodium 146 H
Potassium 4.1
Chloride 110 H
Carbon Dioxide 28
BUN 46 H
Creatinine 1.7 H
Glucose 120 H
Calcium 7.9 L
Vital Signs:
Vital Signs
Temp Pulse Resp BP Pulse Ox
97.2 F 87 18 157/81 98
10/27/24 07:00 10/27/24 07:00 10/27/24 07:00 10/27/24 07:00 10/27/24 07:00
I&O
10/26/24 10/27/24 10/28/24
06:59 06:59 06:59
Intake Total 200 / 200 1280 / 1280
Output Total 3200 / 3200 2550 / 2550
Balance -3000 / -3000 -1270 / -1270
--- NOTE | 2024-10-27 11:40 | W.PN.URO.CBU ---
Today's Communication / Plan
-
Continue antibiotic course
Maintain collins at discharge
Outpatient follow up with Dr. Streeter
Assessment / Plan
-
89M with solitary kidney, presenting with acute renal failure from likely acute on chronic urinary retention
Leukocytosis with E coli UTI
Prostate cystic lesions vs abscess on CT also with liver lesions
Urinary retention, renal failure
- 1.5L drained with collins placement. Maintain collins at discharge for further retention workup
- Creatinine down to 1.7, major improvement - trend renal function, recs per nephrology
UTI/prostate abscesses
- E coli UTI - recommend total 14 day antibiotic course for complicated UTI with possible prostate abscess
- Leukocytosis with slight elevation persistent
- Per prior discussion between Dr. Streeter, patient, and family, decision was made to avoid intervention like abscess unroofing given patient's clinical improvement
- If infection worsens or recurs post treatment, would recommend reimaging and further eval for these prostate lesions
- Will need PSA and prostate exam in follow up to rule out prostate cancer
- Further outpatient imaging recommended for indeterminate liver lesions
Diagnosis
-
Date of Service: October 27, 2024
-
Patient Diagnosis:
urinary retention
Acute renal failure
solitary kidney
BPH
possible prostate abscess radiographically
Liver lesions
Post Op Day:
Subjective
-
No events
Objective
-
Vital Signs
Temp Pulse Resp BP Pulse Ox
97.2 F 87 18 157/81 98
10/27/24 07:00 10/27/24 07:00 10/27/24 07:00 10/27/24 07:00 10/27/24 07:00
Intake and Output
10/26/24 10/27/24 10/28/24
06:59 06:59 06:59
Intake Total 200 / 200 1280 / 1280
Output Total 3200 / 3200 2550 / 2550
Balance -3000 / -3000 -1270 / -1270
Intake:
Oral fluids 1280 / 1280
IV fluids (Total) 100 / 100
IV piggybacks 100 / 100
Output:
Urine, Collins 3200 / 3200 2550 / 2550
Laboratory Results
10/27/24 05:42
10/27/24 05:42
Physical Exam
-
General - well developed, well nourished, no acute distress
Chest - clear
Abdomen - soft, non-tender
- collins in place, clear
--- NOTE | 2024-10-27 12:27 | W.PN.NEPH.PH ---
Today's Communication / Plan
-
follow BMP
Assessment/Plan
-
Assessment
BLANCA
Urinary retention
Azotemia
Metabolic acidosis
Hyperkalemia
hyponatremia
Hypocalcemia
Hyperphosphatemia
Nephrotic range proteinuria
Anemia, microcytic
Leukocytosis
Elevated PSA, prostate abnormality on CT
A-fib
Plan
Maintain Simmons catheter
Off MARIA A inhibitor
oxygen equipment technician titrate CCB for BP
follow BMP
no IVF
urology f/u for prostate
I would defer w/u of proteinuria given age.
-
-
Date of Service: October 27, 2024
CC / HPI / ROS
-
Chief Complaint:
BLANCA
History of Present Illness:
BLANCA/Cr down to 1.7
Hgb low stable 7.4
Sim[address] remains in place for retention
BP stable
Review of Systems:
no CP/SOB
agitated this morning according to family
Labs
-
Labs:
WBC 13.5 10^3/uL (4.8-10.8) H 10/27/24 05:42
RBC 2.86 10^6/uL (4.70-6.10) L 10/27/24 05:42
Hgb 7.4 g/dL (13.0-18.0) L 10/27/24 05:42
Hct 23.5 % (39.0-52.0) L 10/27/24 05:42
Plt Count 197 10^3/uL (130-400) 10/27/24 05:42
Sodium 146 mmol/L (135-145) H 10/27/24 05:42
Potassium 4.1 mmol/L (3.5-5.1) 10/27/24 05:42
Chloride 110 mmol/L (98-107) H 10/27/24 05:42
Carbon Dioxide 28 mmol/L (22-30) 10/27/24 05:42
BUN 46 mg/dl (9-20) H 10/27/24 05:42
Creatinine 1.7 mg/dL (0.7-1.3) H 10/27/24 05:42
eGFR 38.06 10/27/24 05:42
Glucose 120 mg/dl (70-99) H 10/27/24 05:42
Calcium 7.9 mg/dl (8.4-10.2) L 10/27/24 05:42
Phosphorus 7.9 mg/dl (2.5-4.5) H 10/21/24 21:15
Albumin 3.5 g/dl (3.5-5.0) 10/21/24 21:15
Physical Exam
-
Vital Signs:
Vital Signs
Temp Pulse Resp BP Pulse Ox
97.2 F 87 18 157/81 98
10/27/24 07:00 10/27/24 07:00 10/27/24 07:00 10/27/24 07:00 10/27/24 07:00
Cardiovascular:: Regular rate and rhythm
Respiratory:: Bilateral: CTA
Lung Excursion:: Normal
Abdomen:: Nontender and Soft
Bowel Sounds:: Normal
Extremity Edema:: None: Bilateral:
[2024-10-27] MEDS: FERRLECIT 110 MG IV (13:51)
[2024-10-27 15:00] VITALS: BP 148/68
--- NOTE | 2024-10-27 18:31 | PTCARENOTE ---
Patients granddaughter asked for heel and sacral foams to be changed in front of her towards end of shift. Foams were new and changed earlier in the shift, but were changed per granddaughters request. Patient's granddaughter requested Pt to get OOB
and into bedside chair. Assist x2 to have Pt in chair, chair alarm in place, and call buckner within reach.
[2024-10-27] MEDS: LOW STRENGTH ASPIRIN 81 MG PO (21:14)
[2024-10-27] MEDS: HYTRIN 2 MG PO (21:14)
[2024-10-27] MEDS: ROCEPHIN 1000 MG IV (23:25)
[2024-10-27] MEDS: STERILE WATER FOR INJECTION 10 ML IV (23:26)
[2024-10-27 23:29] VITALS: BP 156/70
[2024-10-28 06:00] VITALS: BMI 22.4
[2024-10-28 07:05] LABS: Hematocrit 24.4 % (39.0-52.0); Hemoglobin 7.6 g/dL (13.0-18.0); Mean Corp Hgb Conc. 31.1 g/dL (33.0-37.0); Mean Corpuscular Hgb 25.9 pg (27.0-31.0); Mean Platelet Volume 9.6 fL (7.4-10.4); Platelet Count 208 10^3/uL (130-400); Red Blood Cell Count 2.94 10^6/uL (4.70-6.10); Red Cell Dist. Width 16.5 % (11.5-14.5); White Blood Cell Count 12.9 10^3/uL (4.8-10.8)
[2024-10-28 07:30] VITALS: BP 157/67
[2024-10-28 07:42] LABS: Blood Urea Nitrogen 36 mg/dl (9-20); Calcium 8.5 mg/dl (8.4-10.2); Carbon Dioxide 26 mmol/L (22-30); Chloride 110 mmol/L (98-107); Estimated Creatinine Clearance 29 ml/min; Glucose 112 mg/dl (70-99); Potassium 4.2 mmol/L (3.5-5.1); Sodium 143 mmol/L (135-145); eGFR 40.93
[2024-10-28] MEDS: HEPARIN 5000 UNITS SC ×2 (08:46→21:10)
[2024-10-28] MEDS: NORVASC 2.5 MG PO (08:47)
[2024-10-28] MEDS: FEOSOL 325 MG PO (08:47)
--- NOTE | 2024-10-28 10:16 | CM ---
Addendum entered by ROSALINDA Hong 10/28/24 16:47:
Spoke with patient's Granddaughter to receive update. She stated that she toured [facility] and would like for patient to transfer to that facility. Left another voice mail for [facility]. Will start auth once connection is made with [facility] and confirmation
is obtained that she does have a bed.
Addendum entered by ROSALINDA Hong 10/28/24 16:23:
Placed a call to [facility] in admissions to f/u on referral. Had to leave a voice mail message. Requested return call for update.
Addendum entered by ROSALINDA Hong 10/28/24 15:15:
Received message through [facility] that patient can be accepted by [facility]. Will call to f/u.
Original Note:
Spoke with patient's granddaughter, Yaz Hearn' who stated that she would also like referrals to be sent to [facility], [facility], [facility], [facility], and [facility]. Will send referrals to additionally requested facilities. Thus far
no facility that has been requested has offered acceptance.
Referrals sent to above facilities, will await determinations.
Plan: Case management will continue to follow and assist with discharge planning. SNF when bed available.
[2024-10-28] MEDS: FERRLECIT 110 MG IV (13:13)
--- NOTE | 2024-10-28 14:03 | W.PN.NEPH.PH ---
Today's Communication / Plan
-
increase CCB for HTN
Assessment/Plan
-
Assessment
BLANCA
Urinary retention
Azotemia
Metabolic acidosis
Hyperkalemia
hyponatremia
Hypocalcemia
Hyperphosphatemia
Nephrotic range proteinuria
Anemia, microcytic
Leukocytosis
Elevated PSA, prostate abnormality on CT
A-fib
Plan
cr cont to improve at 1.6
Maintain Simmons catheter
Off MARIA A inhibitor
HTN-increase CCB
follow BMP
urology f/u for prostate
I would defer w/u of proteinuria given age, could repeat out pt.
-
-
Date of Service: October 28, 2024
CC / HPI / ROS
-
Chief Complaint:
BLANCA
History of Present Illness:
BLANCA/Cr down to 1.6
Hgb low stable 7.6
[address] for retention
BP stable
Review of Systems:
no CP/SOB
comfortable sitting in chair
Labs
-
Labs:
WBC 12.9 10^3/uL (4.8-10.8) H 10/28/24 06:48
RBC 2.94 10^6/uL (4.70-6.10) L 10/28/24 06:48
Hgb 7.6 g/dL (13.0-18.0) L 10/28/24 06:48
Hct 24.4 % (39.0-52.0) L 10/28/24 06:48
Plt Count 208 10^3/uL (130-400) 10/28/24 06:48
Sodium 143 mmol/L (135-145) 10/28/24 06:48
Potassium 4.2 mmol/L (3.5-5.1) 10/28/24 06:48
Chloride 110 mmol/L (98-107) H 10/28/24 06:48
Carbon Dioxide 26 mmol/L (22-30) 10/28/24 06:48
BUN 36 mg/dl (9-20) H 10/28/24 06:48
Creatinine 1.6 mg/dL (0.7-1.3) H 10/28/24 06:48
eGFR 40.93 10/28/24 06:48
Glucose 112 mg/dl (70-99) H 10/28/24 06:48
Calcium 8.5 mg/dl (8.4-10.2) 10/28/24 06:48
Phosphorus 7.9 mg/dl (2.5-4.5) H 10/21/24 21:15
Albumin 3.5 g/dl (3.5-5.0) 10/21/24 21:15
Physical Exam
-
Vital Signs:
Vital Signs
Temp Pulse Resp BP Pulse Ox
98.2 F 72 20 157/67 97
10/28/24 07:30 10/28/24 08:47 10/28/24 07:30 10/28/24 08:47 10/28/24 07:30
Cardiovascular:: Regular rate and rhythm
Respiratory:: Bilateral: CTA
Lung Excursion:: Normal
Abdomen:: Nontender and Soft
Extremity Edema:: None: Bilateral:
Simmons Catheter: Yes
[2024-10-28 14:05] VITALS: PULSE 72; O2SAT 96
[2024-10-28 16:18] VITALS: BP 160/74
--- NOTE | 2024-10-28 17:47 | W.PN.HOSP.TC ---
Today's Communication/Plan
-
Assessment / Plan
Assessment / Plan
Physical Exam
General: Appears Chronically Ill
HEENT: Normocephalic.
Respiratory: No rales today
Cardiac: S1/S2 and Irregular Rhythm
GI: Soft, Non Tender, Non Distended and Normal Bowel Sounds
Rectal: No bleeding
Genito-urinary: clear Urine and Simmons
Musculoskeletal: No Clubbing, No Cyanosis, Edema, Left Lower Extremity (trace ankle) and Edema, Right Lower Extremity (trace ankle)
Neuro: AO to self and surroundings, no tremor
Psych: Calm
89 y.o male here with acute renal failure of likely obstructive etiology. K is 5.4. bicarb 12. BUN 161 and Cr 9.9. Patient not immediately polyuric after placement of catheter but making some urine. Does not appear oliguric. History suggest
some degree of dehydration. Renal function now dramatically improved.
PLAN:
BLANCA - Severe BLANCA plausible post-renal given h/o bph, nocturia and urinary retention to 1.5 L in ED. No hydronephrosis seen on CT.
-Creatinine 1.5 with GFR 45 in 09/2024
-Creatinine now down to 1.6
-Good oral intake
-s/p left nephrectomy.
-No need for more IVF, monitor weight, pulmonary status. Weight is stable now.
-c/w Simmons, maintain Simmons after discharge until outpatient urology follow-up
-Stopped MARIA A
-Avoid hypotension
-Appreciate nephrology & urology help
#acute pulmonary non cardiogenic edema
-Stopped IVF
-Breathing comfortably on room air
# Hyperkalemia
-Resolved
# Urinary retention/ E Coli UTI ( pugh sensitive)
- s/p urinary catheter
- continue catheter for now
- continue terazosin for now
- continue ceftriaxone while in hospital, can discharged on oral Cefdinir for total 14 days ( d/w urology).
- urology follow-up outpatient setting
# Secondary HTN
-due to CKD
-started low dose amlodipine
# Permanent AFIB
-Started on low dose BB but noted to have low HR so discontinued, although he had no symptoms.
- telemetry monitoring for now
- Xarelto resulted in GI bleed so no further anticoagulation.
- continue aspirin 81
# Acute on chronic anemia of chronic disease/ Iron deficiency anemia
-Baseline HGB around 8-9
-No bleeding, no need for daily CBC
-low iron level, normal ferritin
-Consent signed, given one unit of RBCs 10/23.
-s/p IV Iron for 2 doses, will give another two doses while in hospital, oral iron.
# hepatic lobe lesions
-Possible prostate cancer. Will need OP follow up with urologist.
- Elevated PSA
-Mild elevation CEA
-AFP is normal
-Urine electrophoresis is resulted, d/w nephrology, unlikely Multiple myeloma.
-MRI done but limited.
# Leukocytosis
-WBC is coming down
-No fevers
DVT PPX - heparin sq
Code status - Full code
Total time spent to see the patient, examine the patient, review data and lab results, discuss treatment plan with patient, tin assorter, and nursing staff around 55 minutes
Anticipated Discharge: 24 - 48 hours
Subjective/Interval History
-
Date of Service: October 28, 2024
Mr. Lisa was seen and examined at bedside this morning. Feels generally well. No complaints. Continuing antibiotics with cefdinir. Simmons catheter remains in place.
Objective Data
-
Labs:
Laboratory Results
10/28/24
06:48
WBC 12.9 H
Hgb 7.6 L
Hct 24.4 L
Plt Count 208
Sodium 143
Potassium 4.2
Chloride 110 H
Carbon Dioxide 26
BUN 36 H
Creatinine 1.6 H
Glucose 112 H
Calcium 8.5
Vital Signs:
Vital Signs
Temp Pulse Resp BP Pulse Ox
99.1 F 74 20 160/74 97
10/28/24 16:18 10/28/24 16:18 10/28/24 16:18 10/28/24 16:18 10/28/24 16:18
I&O
10/27/24 10/28/24 10/29/24
06:59 06:59 06:59
Intake Total 1280 / 1280 1440 / 1440 590 / 590
Output Total 2550 / 2550 1550 / 1550 450 / 450
Balance -1270 / -1270 -110 / -110 140 / 140
Review of Systems
-
History Source: Patient and Family
Physical Exam
-
General: No Apparent Distress
[2024-10-28] MEDS: HYTRIN 2 MG PO (21:10)
[2024-10-28] MEDS: NORVASC 5 MG PO (21:10)
[2024-10-28] MEDS: LOW STRENGTH ASPIRIN 81 MG PO (21:10)
[2024-10-28 23:44] VITALS: BP 151/63
[2024-10-29] MEDS: ROCEPHIN 1000 MG IV (00:02)
[2024-10-29] MEDS: STERILE WATER FOR INJECTION 10 ML IV (00:02)
[2024-10-29 06:12] VITALS: BMI 22.7
[2024-10-29 07:43] VITALS: BP 152/68
[2024-10-29] MEDS: NORVASC 5 MG PO (09:23)
[2024-10-29] MEDS: FEOSOL 325 MG PO (09:23)
[2024-10-29] MEDS: HEPARIN 5000 UNITS SC (09:25)
--- NOTE | 2024-10-29 11:47 | CM ---
Addendum entered by Janette Regalado 10/29/24 15:49:
Authorization approved for today -tt hospitalist - discharge today to [facility]
Received tt from nursing grand-daughter decided to transport patient to [facility]
Notified [facility] bah.
Addendum entered by Janette Regalado 10/29/24 13:34:
Per [facility]a - Patient can transfer to [facility] today, pending insurance approval.
If approval today can transport at 6pm
tt physician
Addendum entered by Janette Regalado 10/29/24 13:06:
Discussed w/c van with Nicholas grand-daughter - agreeable & understands there will be a cost.
She will authorize the payment.
OT eval done today.
[facility] bah to let CM know if the bed is available today
Addendum entered by Janette Regalado 10/29/24 12:01:
IMM explained & signed
Original Note:
Patient seen at bedside with grand-daughter Nicholas
CM called Mona bah at [facility], bed available tomorrow, but may have bed today & will get get back to
tt hospitalist
[facility] NPI #: [id number]
Dr. Lisa Wrgiht NPI #: [id number]
Alerted OT to eval patient today
CM to start insurance auth once OT eval
PLAN: [facility], pending insurance approval
Report #: [phone]
Fax #: [phone]
[2024-10-29 13:01] VITALS: BP 150/68; BP 166/77; PULSE 84; O2SAT 96
--- NOTE | 2024-10-29 13:42 | CM ---
Addendum entered by Janette Regalado 10/29/24 14:06:
Authorization APPROVED & information given to Mona bah at [facility]
Ambulance forms on chart - time TBD
Addendum entered by Casandra Lynn 10/29/24 13:54:
TCB from [facility] from [facility]
Approved skilled rehab at [facility]
Start date 10/29/24, LCD/NRD 11/04/24
Auth# [id number]
Updates to p# [phone]
[facility] ambulance auth # [id number]
Original Note:
TC to [facility] spoke with Kyung
Requested skilled authorization
Await TCB.
--- NOTE | 2024-10-29 14:11 | W.DCSUMMARY ---
Discharge Summary
Discharge Data
Date of Admission: 10/22/24
Date of Discharge: 10/29/24
-
Pending Results: No
Hospital Course
Mr. Lisa is an 89-year-old male with medical history of CAD, hypertension, enlarged prostate, iron deficiency anemia, and nephrectomy (in his 30s) who presented with altered mentation. He was brought in by his granddaughter who works as a nurse
for [employer]. Patient reportedly had a 20 to 30 pound weight loss over the past few months and has had difficulty urinating recently. He was found to have a creatinine of 9.9 and a leukocytosis of 14,000. He was noted to be retaining urine and a
Collins catheter was placed with 1.5 L of turbid appearing urine out immediately. He was started on aggressive IV fluids. No hydronephrosis was noted on CT imaging. His renal function rapidly improved after addressing his bladder outlet
obstruction. His MARIA A inhibitor was discontinued and he was started on amlodipine instead for hypertension. His renal function has now returned to recent baseline with a creatinine around 1.5. He was evaluated by urology who recommended
maintaining Collins catheter at discharge until follow-up in the outpatient office. He was started on a course of antibiotics for an E. coli UTI, which he will continue to complete 14-day total course.
CT imaging also revealed an enlarged prostate gland with 2 low-attenuation densities on the right side (measuring 3.2 cm and 3.7 cm), a liver mass, and a few scattered osseous lucencies all of which could not be excluded for malignancy. Further
evaluation of liver lesions with MRI showed 2 hepatic lesions measuring 1.9 cm and 1.8 cm that were not able to be adequately characterized in the absence of intravenous contrast and will require further evaluation in the outpatient setting with the
guidance of an oncologist.
He was also noted to be in A-fib and apparently had previously been anticoagulated with Xarelto which was discontinued due to GI bleeding. He was started on low-dose beta-linsey but was discontinued due to mild asymptomatic bradycardia.
Apparently he had been told to take low-dose aspirin only in the outpatient setting which we have continued. His heart rate has remained controlled.
He was given a few doses of IV iron while in the hospital and will be continued on oral iron indefinitely.
He was evaluated by PT/OT who recommended SNF at time of discharge for ongoing physical therapy.
At time of hospital discharge he was hemodynamically stable. He will be discharged to SNF.
He will need to follow-up with his PCP, nephrology, and hematology oncology after discharge.
General: Appears Chronically Ill
HEENT: Normocephalic.
Respiratory: No rales today
Cardiac: S1/S2 and Irregular Rhythm
GI: Soft, Non Tender, Non Distended and Normal Bowel Sounds
Rectal: No bleeding
Genito-urinary: clear Urine and Collins
Musculoskeletal: No Clubbing, No Cyanosis, Edema, Left Lower Extremity (trace ankle) and Edema, Right Lower Extremity (trace ankle)
Neuro: AO to self and surroundings, no tremor
Psych: Calm
Discharge Plan
-
Patient Disposition: Prison/SNF
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
Diet: Other diet
Additional Diets: Renal diet, low potassium
Activity: With assistance and As tolerated
Other Services: PT and OT
Activity Restrictions/Additional Instructions:
Mr. Lisa is an 89-year-old male with medical history of CAD, hypertension, enlarged prostate, iron deficiency anemia, and nephrectomy (in his 30s) who presented with altered mentation. He was brought in by his granddaughter who works as a nurse
for [employer]. Patient reportedly had a 20 to 30 pound weight loss over the past few months and has had difficulty urinating recently. He was found to have a creatinine of 9.9 and a leukocytosis of 14,000. He was noted to be retaining urine and a
Collins catheter was placed with 1.5 L of turbid appearing urine out immediately. He was started on aggressive IV fluids. No hydronephrosis was noted on CT imaging. His renal function rapidly improved after addressing his bladder outlet
obstruction. His MARIA A inhibitor was discontinued and he was started on amlodipine instead for hypertension. His renal function has now returned to recent baseline with a creatinine around 1.5. He was evaluated by urology who recommended
maintaining Collins catheter at discharge until follow-up in the outpatient office. He was started on a course of antibiotics for an E. coli UTI, which he will continue to complete 14-day total course.
CT imaging also revealed an enlarged prostate gland with 2 low-attenuation densities on the right side (measuring 3.2 cm and 3.7 cm), a liver mass, and a few scattered osseous lucencies all of which could not be excluded for malignancy. Further
evaluation of liver lesions with MRI showed 2 hepatic lesions measuring 1.9 cm and 1.8 cm that were not able to be adequately characterized in the absence of intravenous contrast and will require further evaluation in the outpatient setting with the
guidance of an oncologist.
He was also noted to be in A-fib and apparently had previously been anticoagulated with Xarelto which was discontinued due to GI bleeding. He was started on low-dose beta-linsey but was discontinued due to mild asymptomatic bradycardia.
Apparently he had been told to take low-dose aspirin only in the outpatient setting which we have continued. His heart rate has remained controlled.
He was given a few doses of IV iron while in the hospital and will be continued on oral iron indefinitely.
He was evaluated by PT/OT who recommended SNF at time of discharge for ongoing physical therapy.
At time of hospital discharge he was hemodynamically stable. He will be discharged to SNF.
He will need to follow-up with his PCP, nephrology, and hematology oncology after discharge.
Referrals:
Abisai Streeter MD [Active] - (you have a collins please contact [facility] [phone] [facility] for follow up or if you have a uroogist please call them)
Lynda Wade MD [Active] - (Follow up for prostate, liver, and osseous lesions suspicious for malignancy)
Luis Angel Larkin MD [Active] -
Lokesh Arrington DO [Family Provider] -
Prescriptions:
New
ferrous sulfate [FeroSul] 325 mg (65 mg iron) Tablet
325 mg PO DAILY 30 Days Qty: 30 0RF
amlodipine 5 mg Tablet
5 mg PO BID 30 Days Qty: 60 0RF
cefdinir 300 mg capsule
300 mg PO BID 7 Days Qty: 14 0RF
Continued
atorvastatin 20 mg Tablet
20 mg PO DAILY
therapeutic multivitamin Tablet
1 tab PO DAILY
terazosin 2 mg Capsule
2 mg PO HS
aspirin 81 mg Tablet,Chewable
81 mg PO HS
Discontinued
ramipril 5 mg Capsule
10 mg PO DAILY
Discharge Orders:
Discharge Patient (As Directed); Ordered 10/29/24
Ordered By: Luis Angel Gallardo
Discharge Date and Time
Print Language: SETSWANA
[2024-10-29 16:04] VITALS: BP 163/70
== END 2024-10-29 16:12 | DRG 682 ==
LOC: 3 WEST ACU 01:26
PROVIDERS: Emergency Medicine; Internal Medicine; Nurse Practitioner Family; ADMITTING PHYSICIAN Internal Medicine; ATTENDING PHYSICIAN Internal Medicine; CONSULT PHYSICIAN Specialist; EMERGENCY PHYSICIAN Emergency Medicine; FAMILY PHYSICIAN Family Medicine; OTHER PHYSICIAN Specialist
PROC: 30233N1 Transfusion of Nonautologous Red Blood Cells into Peripheral Vein, Percutaneous Approach (ICD-10-PCS; 2024-10-23)
DX: N17.9 Acute kidney failure, unspecified (principal); J81.0 Acute pulmonary edema; E87.1 Hypo-osmolality and hyponatremia; E87.20 Acidosis, unspecified; N13.8 Other obstructive and reflux uropathy; N39.0 Urinary tract infection, site not specified; I48.21 Permanent atrial fibrillation; N40.1 Benign prostatic hyperplasia with lower urinary tract symptoms; I25.10 Atherosclerotic heart disease of native coronary artery without angina pectoris; I12.9 Hypertensive chronic kidney disease with stage 1 through stage 4 chronic kidney disease, or unspecified chronic kidney disease; N18.9 Chronic kidney disease, unspecified; D50.9 Iron deficiency anemia, unspecified; Z90.5 Acquired absence of kidney; B96.20 Unspecified Escherichia coli [E. coli] as the cause of diseases classified elsewhere; N32.0 Bladder-neck obstruction; K76.9 Liver disease, unspecified; R62.7 Adult failure to thrive; E87.5 Hyperkalemia; Z79.82 Long term (current) use of aspirin; E78.5 Hyperlipidemia, unspecified; Z79.899 Other long term (current) drug therapy; K57.30 Diverticulosis of large intestine without perforation or abscess without bleeding; E83.51 Hypocalcemia; E83.39 Other disorders of phosphorus metabolism; D63.1 Anemia in chronic kidney disease
CPT/HCPCS: 51702; 71046; 74176; 74181; 80048; 80053; 80061; 81003; 81015; 82105; 82378; 82550; 82570; 82728; 82784; 82962; 83516; 83540; 83735; 83970; 84100; 84132; 84155; 84156; 84165; 84300; 84443; 85025; 85027; 86038; 86039; 86063; 86160; 86334; 86850; 86900; 86901; 86920; 87077; 87086; 87186; 93005; 96374; 96375; 97116; 97162; 97167; 97530; 97535; 99291; G0103; J2916; P9016